=== PATIENT | female | born 1980 | race Caucasian/White ===

== ENCOUNTER 2016-09-09 19:24 | Emergency (ER) | payer MEDICAID ==
[~2016-09-09] VITALS: Ht 167.6 cm; Wt 100.0 kg
[~2016-09-09 19:24] MED LIST: ACYCLOVIR200 MG PO; AMARYL PO; AMBIEN 10MG10 MG PO; AMOXICILLIN875 MG PO; BACTRIM DS 8001 TAB PO; BIAXIN XL500 MG PO; CEFTIN 250250 MG/TAB PO; CEPHALEXIN500 M1 PO; COMBIVENT INH14.7 GM IH; DIFLUCAN 100MG100 MG PO; DIFLUCAN150 MG PO; FLAGYL500 MG PO; FLEXERIL10 MG PO; FORTAMET500 MG PO; GLIMEPIRIDE; GLIPIZIDE10 MG PO; GLUCOPHAGE1000 MG PO; GLUCOTROL10 M1 PO; GLUCOTROL10 MG PO; GYNE-LOTRIMIN 31 KIT VG; IMITREX25 MG PO; LANTIS; LANTUS100 U/ML; LANTUS100 U/ML SC; LANTUS100 U/ML SQ; LEVAQUIN 750MG750 MG PO; LEVEMIR100 U/ML SC; LEXAPRO 10MG10 MG PO; LISINOPRIL10 MG PO; LORTAB 5/500 501 TAB; LORTAB 5/500 501 TAB PO; LORTAB 7.5/5001 TAB PO; MIRENA52 MG IU; MOTRIN 200200 MG/TAB PO; MOTRIN 800800 MG/TAB PO; MYCOLOG-II 10001 CRE TP; NEURONTIN300 MG/CAP PO; NO HOME MEDICATIONS; NORCO 325 MG-51 TAB PO; NORCO 325 MG-7.1 TAB PO; NOVOLOG 100U100 U/M1 SC; NOVOLOG 100U100 U/ML SQ; NOVOLOG FLEX100 U/ML IV; NOVOLOG100 U/ML IV; NYSTATIN POWDER15 GM PO; OTC COLD MED; PERCOCET 325 MG1 TA2 PO; PERCOCET 325 MG1 TAB PO; PERCOCET 5/321 UDTAB PO; PHENERGAN 25 TA25 MG PO; PHENERGAN25 MG RC; PREDNISONE10 MG PO; PRENATAL1 TA1 PO; PRENATAL1 TA2 PO; PRILOSEC; ROBAXIN 50500 MG/TAB PO; SEPTRA DS 8001 TAB PO; SKELAXIN 800MG800 MG PO; TAMIFLU75 MG PO; TYLENOL 325MG325 MG PO; TYLENOL 500MG500 MG PO; ULTRAM 50MG TAB50 MG PO; VICODIN 5/5001 UDTAB PO; VIIBRYD20 MG PO; XANAX 0.5MG0.5 MG PO
[2016-09-09 19:25] VITALS: BP 150/82; TEMP 97.8
[2016-09-09] MEDS ORDERED: CYMBALTA 60MG60 MG PO (19:29)
[2016-09-09] MEDS ORDERED: KLONOPIN 0.5MG0.5 MG PO (19:29)
[2016-09-09 19:59] LABS: BASO % 0.4 % (0.0-2.0); EOS # 0.3 (0.0-0.7); EOS % 3.4 % (0-4.0); GRAN # 4.3 (1.4-6.5); HEMATOCRIT 42.9 % (37.0-47.0); HEMOGLOBIN 15.3 g/dl (12.5-16.0); LYMPH # 2.9 (1.2-3.4); LYMPH % 36.7 % (20.0-51.0); MEAN CELL VOLUME 84 fl (80.0-100.0); MEAN CORPUSCULAR HEMOGLOBIN 30 pg (27.0-31.0); MEAN CORPUSCULAR HGB CONC 36 g/dl (33.0-37.0); MEAN PLATELET VOLUME 10.7 fl (7.4-10.4); MONO # 0.4 (0.1-0.6); MONO % 5.4 % (1.7-9.3); PLATELET COUNT 201 K/mm3 (130-400); RED BLOOD COUNT 5.13 M/mm3 (4.10-5.30); REDCELL DISTRIBUTION WIDTH-CV 11.9 % (11.5-14.5)
[2016-09-09 20:07] LABS: ADJUSTED CALCIUM 9.8 mg/dL (8.4-10.2); ALBUMIN 4.4 gm/dL (3.5-5.0); BILIRUBIN,TOTAL 0.9 mg/dL (0.0-1.0); CALCIUM 10.1 mg/dL (8.4-10.2); CREATININE, serum 0.59 mg/dL (0.52-1.25); POTASSIUM 4.2 mmol/L (3.4-5.0); TOTAL PROTEIN 7.9 gm/dL (6.4-8.2)
[2016-09-09 20:10] LABS: PH 5 (5-8); URINE APPEARANCE Clear; URINE BACTERIA Rare /hpf; URINE BILIRUBIN Negative (NEGATIVE); URINE BLOOD Negative (NEGATIVE); URINE COLOR Yellow; URINE GLUCOSE 3+ (NEGATIVE); URINE KETONE Negative (NEGATIVE); URINE RBC 0-2 /hpf; URINE UROBILINOGEN Negative (NEGATIVE)
[2016-09-09] MEDS ORDERED: GLUCOPHAGE500 MG/TAB PO (21:03)
[2016-09-09 22:11] VITALS: PULSE 98
== END 2016-09-09 22:11 | disposition home or self-care (01) ==
LOC: COL.ER 19:24
PROVIDERS: Emergency Medicine
DX: E11.65 Type 2 diabetes mellitus with hyperglycemia (principal); T38.3X6A Underdosing of insulin and oral hypoglycemic [antidiabetic] drugs, initial encounter; Z91.138 Patient's unintentional underdosing of medication regimen for other reason
CPT/HCPCS: J1815

== ENCOUNTER 2016-11-12 01:08 | Emergency (ER) | payer MEDICAID ==
[~2016-11-12] VITALS: Ht 167.6 cm; Wt 100.0 kg
[~2016-11-12 01:08] MED LIST changes: +CYMBALTA 60MG60 MG PO; +GLUCOPHAGE500 MG/TAB PO; +KLONOPIN 0.5MG0.5 MG PO
[2016-11-12 01:10] VITALS: TEMP 97.7
[2016-11-12] MEDS ORDERED: CHANTIX 0.5MG0.5 MG PO (01:13)
[2016-11-12] MEDS ORDERED: GLUCOTROL 5M5 MG/TAB PO (01:14)
[2016-11-12] MEDS ORDERED: GLUCOPHAGE1000 MG PO (01:14)
[2016-11-12] MEDS ORDERED: AMOXICILLIN 50500 MG PO (02:08)
[2016-11-12 02:11] VITALS: BP 120/86; PULSE 80
== END 2016-11-12 02:12 | disposition home or self-care (01) ==
LOC: COL.ER 01:08
DX: J03.00 Acute streptococcal tonsillitis, unspecified (principal); F17.210 Nicotine dependence, cigarettes, uncomplicated; J45.909 Unspecified asthma, uncomplicated; E11.9 Type 2 diabetes mellitus without complications; F32.9 Major depressive disorder, single episode, unspecified; Z79.4 Long term (current) use of insulin; Z79.84 Long term (current) use of oral hypoglycemic drugs; Z98.890 Other specified postprocedural states

== ENCOUNTER 2016-11-30 23:14 | Emergency (ER) | payer MEDICAID ==
[~2016-11-30] VITALS: Ht 162.6 cm; Wt 102.3 kg
[~2016-11-30 23:14] MED LIST changes: +AMOXICILLIN 50500 MG PO; +CHANTIX 0.5MG0.5 MG PO; +GLUCOTROL 5M5 MG/TAB PO
[2016-11-30 23:17] VITALS: TEMP 98.7
[2016-11-30] MEDS ORDERED: CEPHALEXIN500 M1 PO (23:48)
[2016-12-01 00:23] VITALS: BP 118/64; PULSE 110
== END 2016-12-01 00:23 | disposition home or self-care (01) ==
LOC: COL.ER 23:14
DX: S70.361A Insect bite (nonvenomous), right thigh, initial encounter (principal); L03.115 Cellulitis of right lower limb; W57.XXXA Bitten or stung by nonvenomous insect and other nonvenomous arthropods, initial encounter; E11.9 Type 2 diabetes mellitus without complications; Z79.84 Long term (current) use of oral hypoglycemic drugs

== ENCOUNTER 2017-02-26 17:19 | Emergency (ER) | payer MEDICAID ==
[~2017-02-26] VITALS: Ht 167.6 cm; Wt 109.1 kg
[2017-02-26 17:24] VITALS: BP 122/62; TEMP 99
[2017-02-26 18:53] VITALS: PULSE 88
== END 2017-02-26 18:54 | disposition home or self-care (01) ==
LOC: COL.ER 17:19
DX: S93.602A Unspecified sprain of left foot, initial encounter (principal); E11.9 Type 2 diabetes mellitus without complications; F32.9 Major depressive disorder, single episode, unspecified; Z87.891 Personal history of nicotine dependence; Z79.84 Long term (current) use of oral hypoglycemic drugs; X50.9XXA Other and unspecified overexertion or strenuous movements or postures, initial encounter; Y92.481 Parking lot as the place of occurrence of the external cause

== ENCOUNTER 2017-03-02 21:54 | Emergency (ER) | payer MEDICAID ==
[~2017-03-02] VITALS: Ht 167.6 cm; Wt 109.1 kg
[2017-03-02 22:00] VITALS: TEMP 98.3
[2017-03-03] MEDS ORDERED: CRUTCHES MC (05:13)
[2017-03-03 05:46] VITALS: BP 139/73; PULSE 89
== END 2017-03-03 05:45 | disposition home or self-care (01) ==
LOC: COL.ER 21:54
DX: M79.672 Pain in left foot (principal); E11.9 Type 2 diabetes mellitus without complications; E78.5 Hyperlipidemia, unspecified; Z79.84 Long term (current) use of oral hypoglycemic drugs; Z87.891 Personal history of nicotine dependence

== ENCOUNTER 2017-09-27 20:15 | Emergency (ER) | payer MEDICAID ==
[~2017-09-27] VITALS: Ht 165.1 cm; Wt 100.0 kg
[~2017-09-27 20:15] MED LIST changes: +CRUTCHES MC
[2017-09-27 20:19] VITALS: TEMP 98.8
[2017-09-27] MEDS ORDERED: FORT1000TA PO (20:45)
[2017-09-27] MEDS ORDERED: NEURONTIN300 MG/CAP PO (20:45)
[2017-09-27] MEDS ORDERED: BYDUREON PEN2 MG SQ (20:46)
[2017-09-27 22:07] VITALS: BP 110/98; PULSE 100
== END 2017-09-27 22:08 | disposition home or self-care (01) ==
LOC: COL.ER 20:15
DX: S63.92XA Sprain of unspecified part of left wrist and hand, initial encounter (principal); E11.9 Type 2 diabetes mellitus without complications; J45.909 Unspecified asthma, uncomplicated; F32.9 Major depressive disorder, single episode, unspecified; G89.29 Other chronic pain; M54.9 Dorsalgia, unspecified; F17.210 Nicotine dependence, cigarettes, uncomplicated; Z79.84 Long term (current) use of oral hypoglycemic drugs; W01.0XXA Fall on same level from slipping, tripping and stumbling without subsequent striking against object, initial encounter; Y92.410 Unspecified street and highway as the place of occurrence of the external cause

== ENCOUNTER 2017-11-04 16:44 | Emergency (ER) | payer MEDICAID ==
[~2017-11-04] VITALS: Ht 167.6 cm; Wt 92.3 kg
[~2017-11-04 16:44] MED LIST changes: +BYDUREON PEN2 MG SQ; +FORT1000TA PO
[2017-11-04 16:51] VITALS: BP 117/90; TEMP 96.2
[2017-11-04] MEDS ORDERED: XALATAN EYE DROPS OD (17:33)
[2017-11-04] MEDS ORDERED: GLUCOTROL10 MG PO (17:33)
[2017-11-04 17:45] VITALS: PULSE 92
== END 2017-11-04 17:45 | disposition home or self-care (01) ==
LOC: COL.ER 16:44
DX: M79.672 Pain in left foot (principal); F32.9 Major depressive disorder, single episode, unspecified; E11.42 Type 2 diabetes mellitus with diabetic polyneuropathy; F17.210 Nicotine dependence, cigarettes, uncomplicated; Z79.84 Long term (current) use of oral hypoglycemic drugs; Y92.009 Unspecified place in unspecified non-institutional (private) residence as the place of occurrence of the external cause

== ENCOUNTER 2017-11-26 04:12 | Emergency (ER) | payer MEDICAID ==
[~2017-11-26] VITALS: Ht 167.6 cm; Wt 90.9 kg
[~2017-11-26 04:12] MED LIST changes: +XALATAN EYE DROPS OU
[2017-11-26 04:15] VITALS: TEMP 98
[2017-11-26 04:39] LABS: BASO % 0.4 % (0.0-2.0); EOS # 0.1 (0.0-0.7); EOS % 2.1 % (0-4.0); GRAN # 3.1 (1.4-6.5); LYMPH # 1.9 (1.2-3.4); LYMPH % 32.9 % (20.0-51.0); MEAN CELL VOLUME 85 fl (80.0-100.0); MEAN CORPUSCULAR HEMOGLOBIN 28 pg (27.0-31.0); MEAN CORPUSCULAR HGB CONC 34 g/dl (33.0-37.0); MEAN PLATELET VOLUME 9.5 fl (7.4-10.4); MONO # 0.5 (0.1-0.6); MONO % 8.9 % (1.7-9.3); PLATELET COUNT 160 K/mm3 (130-400); RED BLOOD COUNT 4.23 M/mm3 (4.10-5.30); REDCELL DISTRIBUTION WIDTH-CV 12.2 % (11.5-14.5)
[2017-11-26 04:41] LABS: HEMATOCRIT 35.8 % (37.0-47.0)
[2017-11-26 04:46] LABS: ALBUMIN 3.1 gm/dL (3.5-5.0); BILIRUBIN,TOTAL 0.7 mg/dL (0.0-1.0); CALCIUM 7.8 mg/dL (8.4-10.2); CREATININE, serum 0.86 mg/dL (0.52-1.25); POTASSIUM 3.1 mmol/L (3.4-5.0); TOTAL PROTEIN 6.8 gm/dL (6.4-8.2)
[2017-11-26 04:50] LABS: C-REACTIVE PROTEIN 4.3 mg/dL (0.0-0.9)
[2017-11-26] MEDS ORDERED: GLUCOPHAGE XR500 M1 PO (05:21)
[2017-11-26] MEDS ORDERED: K-DUR20 MEQ PO (05:22)
[2017-11-26] MEDS ORDERED: OMNICEF 300MG300 MG PO (05:23)
[2017-11-26] MEDS ORDERED: ZOFRAN ODT4 MG PO (06:09)
[2017-11-26 06:40] VITALS: BP 115/85; PULSE 97
[2017-11-27] MEDS ORDERED: PHENERGAN25 MG RC (20:13)
== END 2017-11-26 06:53 | disposition home or self-care (01) ==
LOC: COL.ER 04:12
PROVIDERS: Family Medicine
DX: R11.2 Nausea with vomiting, unspecified (principal); R51 Headache; E11.9 Type 2 diabetes mellitus without complications; F32.9 Major depressive disorder, single episode, unspecified; Z87.891 Personal history of nicotine dependence; Z79.84 Long term (current) use of oral hypoglycemic drugs
CPT/HCPCS: J2543; J7030; J7050

== ENCOUNTER 2017-11-27 16:26 | Inpatient (IN) | payer MEDICAID ==
[~2017-11-27] VITALS: Ht 167.6 cm; Wt 92.7 kg
[~2017-11-27 16:26] MED LIST changes: +GLUCOPHAGE XR500 M1 PO; +K-DUR20 MEQ PO; +OMNICEF 300MG300 MG PO; +ZOFRAN ODT4 MG PO
[2017-11-27 16:59] LABS: BASO % 0.4 % (0.0-2.0); EOS # 0.2 (0.0-0.7); EOS % 2.2 % (0-4.0); GRAN # 3.7 (1.4-6.5); LYMPH # 2.4 (1.2-3.4); MEAN CELL VOLUME 84 fl (80.0-100.0); MEAN CORPUSCULAR HEMOGLOBIN 29 pg (27.0-31.0); MEAN CORPUSCULAR HGB CONC 35 g/dl (33.0-37.0); MEAN PLATELET VOLUME 9.9 fl (7.4-10.4); MONO # 0.6 (0.1-0.6); MONO % 8.7 % (1.7-9.3); PLATELET COUNT 165 K/mm3 (130-400); RED BLOOD COUNT 4.17 M/mm3 (4.10-5.30); REDCELL DISTRIBUTION WIDTH-CV 11.9 % (11.5-14.5)
[2017-11-27 17:00] LABS: HEMATOCRIT 34.8 % (37.0-47.0)
[2017-11-27 17:04] LABS: INR 1.2 (0.8-3.0); PROTHROMBIN TIME 13.8 SECONDS (9.7-12.8)
[2017-11-27 17:09] LABS: ALANINE AMINOTRANSFERASE 34 U/L (9-52); ALBUMIN 3.3 gm/dL (3.5-5.0); ALKALINE PHOSPHATASE 76 U/L (50-136); ANION GAP 15 mmol/L (7-16); AST,SGOT 39 U/L (15-37); BILIRUBIN,TOTAL 0.9 mg/dL (0.0-1.0); BLOOD UREA NITROGEN 10 mg/dL (7-17); CALCIUM 7.3 mg/dL (8.4-10.2); CARBON DIOXIDE 29 mmol/L (22-30); CHLORIDE 95 mmol/L (98-107); CREATININE, serum 0.64 mg/dL (0.52-1.25); GLUCOSE 174 mg/dL (74-106); LIPASE 130 U/L (23-300); SODIUM 138 mmol/L (137-145); TOTAL PROTEIN 7.1 gm/dL (6.4-8.2)
[2017-11-27 17:13] LABS: POTASSIUM 2.8 mmol/L (3.4-5.0)
[2017-11-27 17:29] LABS: TROPONIN-I < 0.012 ng/mL (0.000-0.034)
[2017-11-27 19:09] LABS: COLLECTION METHOD CLEAN CATCH
[2017-11-27 19:26] LABS: MUCOUS Present /lpf; PH 9 (5-8); SQUAMOUS EPITHELIAL 20-50 /hpf; URINE APPEARANCE Hazy; URINE BACTERIA Rare /hpf; URINE BILIRUBIN Negative (NEGATIVE); URINE BLOOD 2+ (NEGATIVE); URINE COLOR Yellow; URINE GLUCOSE Negative (NEGATIVE); URINE KETONE Trace (NEGATIVE); URINE LEUKOCYTE ESTERASE 1+ (NEGATIVE); URINE NITRATE Negative (NEGATIVE); URINE PROTEIN(semi-quant) Negative (NEGATIVE); URINE UROBILINOGEN Negative (NEGATIVE)
[2017-11-27] MEDS ORDERED: PHENERGAN25 MG RC (20:13)
[2017-11-27 20:50] LABS: CALCIUM 7.1 mg/dL (8.4-10.2); CREATININE, serum 0.59 mg/dL (0.52-1.25)
[2017-11-27 20:51] LABS: POTASSIUM 2.8 mmol/L (3.4-5.0)
[2017-11-27 21:23] LABS: ARTERIAL BLD GAS O2 SATURATION 97.8 % (92-100); ARTERIAL BLD GAS TCO2 CT 32.1; ARTERIAL BLOOD GAS HCO3 31.1 meq/L (22-26); ARTERIAL BLOOD GAS PCO2 30.5 mmHg (35-45); ARTERIAL BLOOD GAS PO2 107.2 mmHg (80-100)
[2017-11-27 21:27] LABS: ARTERIAL BLOOD GAS pH 7.63 (7.35-7.45)
[2017-11-27 21:46] LABS: TRICYCLIC ANTIDEPRESS URINE NEGATIVE
[2017-11-27 23:07] LABS: COLLECTION METHOD CLEAN CATCH
[2017-11-27 23:13] LABS: PH 9 (5-8); SQUAMOUS EPITHELIAL 0-2 /hpf; URINE APPEARANCE Clear; URINE BACTERIA Rare /hpf; URINE BILIRUBIN Negative (NEGATIVE); URINE BLOOD 1+ (NEGATIVE); URINE COLOR Yellow; URINE GLUCOSE Negative (NEGATIVE); URINE KETONE Trace (NEGATIVE); URINE LEUKOCYTE ESTERASE Trace (NEGATIVE); URINE NITRATE Negative (NEGATIVE); URINE PROTEIN(semi-quant) Negative (NEGATIVE); URINE UROBILINOGEN Negative (NEGATIVE)
[2017-11-28 01:35] VITALS: BP 153/91; PULSE 79; TEMP 98.4
[2017-11-28 03:53] VITALS: BP 151/103; PULSE 89; TEMP 98.5
[2017-11-28 06:37] LABS: BASO % 0.3 % (0.0-2.0); EOS # 0.2 (0.0-0.7); EOS % 1.8 % (0-4.0); GRAN # 5.5 (1.4-6.5); GRAN % 60.2 % (42.2-75.2); HEMATOCRIT 37.8 % (37.0-47.0); LYMPH # 2.8 (1.2-3.4); LYMPH % 30.7 % (20.0-51.0); MEAN CELL VOLUME 84 fl (80.0-100.0); MEAN CORPUSCULAR HEMOGLOBIN 29 pg (27.0-31.0); MEAN CORPUSCULAR HGB CONC 34 g/dl (33.0-37.0); MEAN PLATELET VOLUME 9.9 fl (7.4-10.4); MONO # 0.6 (0.1-0.6); MONO % 6.5 % (1.7-9.3); PLATELET COUNT 191 K/mm3 (130-400); RED BLOOD COUNT 4.49 M/mm3 (4.10-5.30); REDCELL DISTRIBUTION WIDTH-CV 12.1 % (11.5-14.5)
[2017-11-28 06:48] LABS: ALBUMIN 3.6 gm/dL (3.5-5.0); BILIRUBIN,TOTAL 0.8 mg/dL (0.0-1.0); CALCIUM 7.5 mg/dL (8.4-10.2); CREATININE, serum 0.73 mg/dL (0.52-1.25)
[2017-11-28 06:51] LABS: POTASSIUM 2.8 mmol/L (3.4-5.0)
[2017-11-28 07:28] VITALS: BP 125/78; PULSE 84; TEMP 98.3
[2017-11-28 11:27] VITALS: BP 138/85; PULSE 79; TEMP 98.5
[2017-11-28 16:22] VITALS: BP 143/89; PULSE 81; TEMP 97.8
[2017-11-28 23:40] VITALS: BP 151/93; PULSE 92; TEMP 97.9
[2017-11-29] VITALS (370 sets, daily range): BP systolic 86–154; BP diastolic 58–90; PULSE 93–105; TEMP 97.7–99.5; O2SAT 98–100
[2017-11-29 05:55] LABS: ARTERIAL BLD GAS O2 SATURATION 96.4 % (92-100); ARTERIAL BLD GAS TCO2 CT 13.5; ARTERIAL BLOOD GAS HCO3 12.6 meq/L (22-26); ARTERIAL BLOOD GAS PCO2 31.9 mmHg (35-45); ARTERIAL BLOOD GAS PO2 104.9 mmHg (80-100); ARTERIAL BLOOD GAS pH 7.21 (7.35-7.45)
[2017-11-29 06:43] LABS: ALBUMIN 3.7 gm/dL (3.5-5.0); BILIRUBIN,TOTAL 0.7 mg/dL (0.0-1.0); CALCIUM 6.8 mg/dL (8.4-10.2); CREATININE, serum 0.75 mg/dL (0.52-1.25); MAGNESIUM 1.2 mg/dL (1.6-2.3); POTASSIUM 4.6 mmol/L (3.4-5.0); TOTAL PROTEIN 7.9 gm/dL (6.4-8.2)
[2017-11-29 06:47] LABS: HEMATOCRIT 39.7 % (37.0-47.0); HEMOGLOBIN 13.1 g/dl (12.5-16.0); MEAN CELL VOLUME 87 fl (80.0-100.0); MEAN CORPUSCULAR HEMOGLOBIN 29 pg (27.0-31.0); MEAN CORPUSCULAR HGB CONC 33 g/dl (33.0-37.0); MEAN PLATELET VOLUME 10.3 fl (7.4-10.4); PLATELET COUNT 221 K/mm3 (130-400); RED BLOOD COUNT 4.58 M/mm3 (4.10-5.30); REDCELL DISTRIBUTION WIDTH-CV 12.4 % (11.5-14.5)
[2017-11-29 06:59] LABS: PROLACTIN 62.7 ng/mL (3.0-18.6)
[2017-11-29 07:46] LABS: BAND 14 % (0-10); LYMPHOCYTE 16 % (20.0-51.0); METAMYELOCYTE 1 % (0-0); NEUTROPHILS 68 % (42.0-75.2); PLATELET ESTIMATE NORMAL (NORMAL)
[2017-11-29 08:34] LABS: ARTERIAL BLD GAS O2 SATURATION 98.7 % (92-100); ARTERIAL BLD GAS TCO2 CT 21.3; ARTERIAL BLOOD GAS BASE EXCESS -2.6 (-2-2); ARTERIAL BLOOD GAS HCO3 20.4 meq/L (22-26); ARTERIAL BLOOD GAS pH 7.45 (7.35-7.45)
[2017-11-29 08:35] LABS: ARTERIAL BLOOD GAS PO2 194.8 mmHg (80-100)
[2017-11-29 10:22] LABS: GLUCOSE,CSF 175 mg/dL (40-70); TOTAL PROTEIN,CSF 96 mg/dL (15-45)
[2017-11-29 10:53] LABS: CSF APPEARANCE CLEAR; CSF COLOR COLORLESS; CSF MONONUCLEAR 59 % (70-100); CSF POLYMORPHONUCLEAR 41 % (0-6); CSF RBC 374 /mm3 (0-0)
[2017-11-29 12:14] LABS: TRICYCLIC ANTIDEPRESS URINE NEGATIVE
[2017-11-30] VITALS (8 sets, daily range): BP systolic 83–124; BP diastolic 52–81; PULSE 56–93; TEMP 97.2–98
[2017-11-30 05:40] LABS: ARTERIAL BLD GAS O2 SATURATION 98.2 % (92-100); ARTERIAL BLD GAS TCO2 CT 18.4; ARTERIAL BLOOD GAS BASE EXCESS -4.2 (-2-2); ARTERIAL BLOOD GAS HCO3 17.7 meq/L (22-26); ARTERIAL BLOOD GAS PCO2 23.3 mmHg (35-45); ARTERIAL BLOOD GAS PO2 152.9 mmHg (80-100)
[2017-11-30 05:53] LABS: ALBUMIN 2.4 gm/dL (3.5-5.0); BILIRUBIN,TOTAL 0.3 mg/dL (0.0-1.0); CALCIUM 6.3 mg/dL (8.4-10.2); CREATININE, serum 0.7 mg/dL (0.52-1.25); MAGNESIUM 1.8 mg/dL (1.6-2.3); PHOSPHOROUS 2.4 mg/dL (2.5-4.5); POTASSIUM 4.1 mmol/L (3.4-5.0); TOTAL PROTEIN 5.3 gm/dL (6.4-8.2)
[2017-11-30 06:01] LABS: TROPONIN-I 0.018 ng/mL (0.000-0.034)
[2017-11-30 06:27] LABS: BASO % 0.2 % (0.0-2.0); EOS # 0.1 (0.0-0.7); EOS % 1.2 % (0-4.0); GRAN # 4.6 (1.4-6.5); GRAN % 55.5 % (42.2-75.2); HEMATOCRIT 26.6 % (37.0-47.0); LYMPH # 2.9 (1.2-3.4); LYMPH % 34.5 % (20.0-51.0); MEAN CELL VOLUME 85 fl (80.0-100.0); MEAN CORPUSCULAR HEMOGLOBIN 28 pg (27.0-31.0); MEAN CORPUSCULAR HGB CONC 34 g/dl (33.0-37.0); MEAN PLATELET VOLUME 10.6 fl (7.4-10.4); MONO # 0.7 (0.1-0.6); MONO % 8.1 % (1.7-9.3); PLATELET COUNT 172 K/mm3 (130-400); RED BLOOD COUNT 3.13 M/mm3 (4.10-5.30); REDCELL DISTRIBUTION WIDTH-CV 12.9 % (11.5-14.5)
[2017-11-30 06:28] LABS: HEMOGLOBIN 8.9 g/dl (12.5-16.0)
[2017-11-30 10:13] LABS: HEMATOCRIT 30.2 % (37.0-47.0)
[2017-12-01] VITALS (7 sets, daily range): BP systolic 101–133; BP diastolic 61–86; PULSE 81–101; TEMP 97–99.4
[2017-12-01 05:17] LABS: BASO % 0.4 % (0.0-2.0); EOS # 0.2 (0.0-0.7); EOS % 1.7 % (0-4.0); GRAN # 8.2 (1.4-6.5); GRAN % 75.1 % (42.2-75.2); HEMATOCRIT 29.8 % (37.0-47.0); LYMPH # 1.9 (1.2-3.4); LYMPH % 17.2 % (20.0-51.0); MEAN CELL VOLUME 86 fl (80.0-100.0); MEAN CORPUSCULAR HEMOGLOBIN 29 pg (27.0-31.0); MEAN CORPUSCULAR HGB CONC 34 g/dl (33.0-37.0); MEAN PLATELET VOLUME 10.2 fl (7.4-10.4); MONO # 0.6 (0.1-0.6); MONO % 5.2 % (1.7-9.3); PLATELET COUNT 197 K/mm3 (130-400); RED BLOOD COUNT 3.47 M/mm3 (4.10-5.30); REDCELL DISTRIBUTION WIDTH-CV 12.7 % (11.5-14.5)
[2017-12-01 05:27] LABS: ALBUMIN 2.7 gm/dL (3.5-5.0); BILIRUBIN,TOTAL 0.6 mg/dL (0.0-1.0); CALCIUM 7.3 mg/dL (8.4-10.2); CREATININE, serum 0.55 mg/dL (0.52-1.25); MAGNESIUM 1.1 mg/dL (1.6-2.3); POTASSIUM 3.8 mmol/L (3.4-5.0)
[2017-12-02 03:27] VITALS: BP 122/77; PULSE 96; TEMP 98.8
[2017-12-02 06:42] LABS: BASO % 0.5 % (0.0-2.0); EOS # 0.2 (0.0-0.7); EOS % 2.4 % (0-4.0); GRAN % 62.6 % (42.2-75.2); HEMOGLOBIN 10.6 g/dl (12.5-16.0); LYMPH # 2.2 (1.2-3.4); LYMPH % 27.1 % (20.0-51.0); MEAN CELL VOLUME 86 fl (80.0-100.0); MEAN CORPUSCULAR HEMOGLOBIN 29 pg (27.0-31.0); MEAN CORPUSCULAR HGB CONC 34 g/dl (33.0-37.0); MEAN PLATELET VOLUME 10.7 fl (7.4-10.4); MONO # 0.6 (0.1-0.6); PLATELET COUNT 261 K/mm3 (130-400); RED BLOOD COUNT 3.69 M/mm3 (4.10-5.30); REDCELL DISTRIBUTION WIDTH-CV 12.8 % (11.5-14.5)
[2017-12-02 06:51] LABS: HEMATOCRIT 31.6 % (37.0-47.0)
[2017-12-02 07:00] LABS: ALBUMIN 2.8 gm/dL (3.5-5.0); BILIRUBIN,TOTAL 0.3 mg/dL (0.0-1.0); CREATININE, serum 0.73 mg/dL (0.52-1.25); MAGNESIUM 1.5 mg/dL (1.6-2.3); POTASSIUM 3.7 mmol/L (3.4-5.0); TOTAL PROTEIN 6.2 gm/dL (6.4-8.2)
[2017-12-02 07:54] VITALS: BP 114/78; PULSE 96; TEMP 98.5
[2017-12-02 11:44] VITALS: BP 105/75; PULSE 109; TEMP 98.5
[2017-12-02 16:10] VITALS: BP 133/88; PULSE 100; TEMP 98.5
[2017-12-02 18:49] VITALS: BP 98/66; PULSE 97
[2017-12-02 23:48] VITALS: BP 132/86; PULSE 87
[2017-12-03 03:34] VITALS: BP 125/90; PULSE 83; TEMP 97.8
[2017-12-03 08:31] VITALS: BP 120/89; PULSE 102; TEMP 98.1
[2017-12-03] MEDS ORDERED: PHENYTEK200 MG PO (09:53)
[2017-12-03 10:56] LABS: BASO # 0.1 (0.0-0.2); BASO % 0.5 % (0.0-2.0); EOS # 0.2 (0.0-0.7); EOS % 2.3 % (0-4.0); GRAN # 7.1 (1.4-6.5); GRAN % 69.8 % (42.2-75.2); HEMOGLOBIN 11.9 g/dl (12.5-16.0); LYMPH # 2.2 (1.2-3.4); LYMPH % 21.4 % (20.0-51.0); MEAN CELL VOLUME 88 fl (80.0-100.0); MEAN CORPUSCULAR HEMOGLOBIN 29 pg (27.0-31.0); MEAN CORPUSCULAR HGB CONC 33 g/dl (33.0-37.0); MEAN PLATELET VOLUME 10.1 fl (7.4-10.4); MONO # 0.6 (0.1-0.6); MONO % 5.6 % (1.7-9.3); PLATELET COUNT 349 K/mm3 (130-400); RED BLOOD COUNT 4.08 M/mm3 (4.10-5.30)
[2017-12-03 10:58] LABS: HEMATOCRIT 35.8 % (37.0-47.0)
[2017-12-03 10:59] VITALS: BP 114/82; PULSE 103; TEMP 98.1
[2017-12-03 11:04] LABS: CALCIUM 8.7 mg/dL (8.4-10.2); CREATININE, serum 1.08 mg/dL (0.52-1.25); MAGNESIUM 1.7 mg/dL (1.6-2.3); POTASSIUM 4.2 mmol/L (3.4-5.0)
== END 2017-12-03 15:41 | disposition home health service (06) | DRG 917 ==
LOC: COL.ER 16:26 → MEDICAL 21:28 → ICU 11-28 09:05 → MEDICAL 11-28 09:06 → ICU 11-29 07:10 → MEDICAL 12-01 14:54
PROVIDERS: Emergency Medicine; Nurse Practitioner Family; Physician Assistant; Psychiatry & Neurology Neurology
PROC: 5A1945Z Respiratory Ventilation, 24-96 Consecutive Hours (ICD-10-PCS; principal; 2017-11-29)
PROC: 0BH17EZ Insertion of Endotracheal Airway into Trachea, Via Natural or Artificial Opening (ICD-10-PCS; 2017-11-29)
PROC: 009U3ZX Drainage of Spinal Canal, Percutaneous Approach, Diagnostic (ICD-10-PCS; 2017-11-29)
DX: T42.4X1A Poisoning by benzodiazepines, accidental (unintentional), initial encounter (principal); J96.01 Acute respiratory failure with hypoxia; E87.3 Alkalosis; F33.8 Other recurrent depressive disorders; E87.2 Acidosis; E87.1 Hypo-osmolality and hyponatremia; N39.0 Urinary tract infection, site not specified; T40.7X1A Poisoning by cannabis (derivatives), accidental (unintentional), initial encounter; R56.9 Unspecified convulsions; E11.65 Type 2 diabetes mellitus with hyperglycemia; E83.42 Hypomagnesemia; F41.0 Panic disorder [episodic paroxysmal anxiety]; F60.3 Borderline personality disorder; E87.6 Hypokalemia; I10 Essential (primary) hypertension; F17.210 Nicotine dependence, cigarettes, uncomplicated
CPT/HCPCS: 99222-AI; 99233-AI; 99239; A4314; C1751; G0378; J0330; J0696; J1170; J1644; J1800; J1815; J2250; J2405; J2543; J2550; J2704; J2765; J3010; J3030; J3370; J3411; J3475; J3480; J7030; J7040; J7050; J7120; Q2009; Q9967

== ENCOUNTER 2017-12-13 15:51 | Outpatient (CLI) | payer MEDICAID ==
[~2017-12-13] VITALS: Ht 167.6 cm; Wt 86.8 kg
[~2017-12-13 15:51] MED LIST changes: +PHENYTEK200 MG PO
[2017-12-13 16:10] VITALS: BP 119/82; PULSE 66; TEMP 98
== END 2017-12-13 18:00 | disposition home or self-care (01) ==
LOC: EUO 15:51
DX: E86.0 Dehydration (principal)
CPT/HCPCS: J7030

== ENCOUNTER 2018-06-16 08:07 | Inpatient (IN) | payer MEDICAID ==
[~2018-06-16] VITALS: Ht 170.2 cm; Wt 93.0 kg
[2018-06-16] VITALS (269 sets, daily range): BP systolic 94–129; BP diastolic 62–119; PULSE 74–127; TEMP 98–99.5; O2SAT 86–100
[2018-06-16 08:24] LABS: BASO % 0.4 % (0.0-2.0); EOS # 0.1 (0.0-0.7); EOS % 0.6 % (0-4.0); GRAN # 6.5 (1.4-6.5); GRAN % 77.5 % (42.2-75.2); HEMOGLOBIN 11.9 g/dl (12.5-16.0); LYMPH # 1.4 (1.2-3.4); LYMPH % 16.6 % (20.0-51.0); MEAN CELL VOLUME 90 fl (80.0-100.0); MEAN CORPUSCULAR HEMOGLOBIN 30 pg (27.0-31.0); MEAN CORPUSCULAR HGB CONC 34 g/dl (33.0-37.0); MEAN PLATELET VOLUME 10.1 fl (7.4-10.4); MONO # 0.4 (0.1-0.6); MONO % 4.5 % (1.7-9.3); PLATELET COUNT 192 K/mm3 (130-400); RED BLOOD COUNT 3.94 M/mm3 (4.10-5.30); REDCELL DISTRIBUTION WIDTH-CV 13.3 % (11.5-14.5)
[2018-06-16 08:38] LABS: ALANINE AMINOTRANSFERASE 20 U/L (9-52); ALBUMIN 3.7 gm/dL (3.5-5.0); ALKALINE PHOSPHATASE 77 U/L (50-136); ANION GAP 5 mmol/L (7-16); AST,SGOT 16 U/L (15-37); BLOOD UREA NITROGEN 31 mg/dL (7-17); CALCIUM 8.8 mg/dL (8.4-10.2); CARBON DIOXIDE 26 mmol/L (22-30); CHLORIDE 100 mmol/L (98-107); CREATININE, serum 1.49 mg/dL (0.52-1.25); GLUCOSE 297 mg/dL (74-106); SODIUM 132 mmol/L (137-145); TOTAL PROTEIN 6.7 gm/dL (6.4-8.2)
[2018-06-16 08:48] LABS: ACETAMINOPHEN < 10 ug/mL (10-30); SALICYLATE < 1.0 mg/dL
[2018-06-16 08:49] LABS: ALCOHOL(ethanol),MEDICAL < 10 mg/dL; POTASSIUM 6.5 mmol/L (3.4-5.0)
[2018-06-16 08:57] LABS: HEMATOCRIT 35.4 % (37.0-47.0)
[2018-06-16 09:05] LABS: TRICYCLIC ANTIDEPRESS URINE POSITIVE
[2018-06-16 10:17] LABS: COLLECTION METHOD CLEAN CATCH
[2018-06-16 10:37] LABS: MUCOUS Present /lpf; PH 5 (5-8); SQUAMOUS EPITHELIAL 0-2 /hpf; URINE APPEARANCE Cloudy; URINE BACTERIA Rare /hpf; URINE BILIRUBIN Positive (NEGATIVE); URINE BLOOD Negative (NEGATIVE); URINE COLOR Amber; URINE GLUCOSE Negative (NEGATIVE); URINE KETONE Negative (NEGATIVE); URINE LEUKOCYTE ESTERASE 3+ (NEGATIVE); URINE NITRATE Negative (NEGATIVE); URINE PROTEIN(semi-quant) 2+ (NEGATIVE); URINE RBC None Seen /hpf
[2018-06-16 11:33] LABS: CALCIUM 7.5 mg/dL (8.4-10.2); CREATININE, serum 1.27 mg/dL (0.52-1.25); POTASSIUM 5.1 mmol/L (3.4-5.0)
--- NOTE | 2018-06-16 15:00 | NUR ---
Mother and brother at bedside, patient settling down with Propofol titration.
[2018-06-16 15:46] LABS: ARTERIAL BLD GAS TCO2 CT 25.2; ARTERIAL BLOOD GAS BASE EXCESS 2.2 (-2-2); ARTERIAL BLOOD GAS HCO3 24.3 meq/L (22-26); ARTERIAL BLOOD GAS PCO2 29.7 mmHg (35-45); ARTERIAL BLOOD GAS pH 7.53 (7.35-7.45)
[2018-06-16 15:47] LABS: ARTERIAL BLOOD GAS PO2 403.9 mmHg (80-100)
[2018-06-16 18:40] LABS: CREATININE, serum 1.33 mg/dL (0.52-1.25)
--- NOTE | 2018-06-16 19:36 | NUR ---
bedside report given to Charissa MEEK. Medication drips verified. RT also in room for report
--- NOTE | 2018-06-16 19:40 | NUR ---
Patient becomes very restless and agitated with cares. Observed thrashing around in bed. Will comply with verbal orders to relax or stop fighting the vent for a short time, but then continues thrashing around. Sedation increased at this time to assist with tolerating ventilator and cares.
--- NOTE | 2018-06-16 20:16 | NUR ---
Updated patient's mother Karis via telephone. All questions and concerns addressed at this time.
--- NOTE | 2018-06-16 22:05 | NUR ---
Patient sedated and restrained on the ventilator. Allowed to have visitors while on the ventilator.
--- NOTE | 2018-06-16 23:51 | NUR ---
Patient has been responsive to verbal stimuli. Will squeeze hands on command and intermittently open eyes on command. Received verbal order to change neuro checks from every hour to every [address] Mcintyre.
[2018-06-17] VITALS: BP 122/77; PULSE 72; TEMP 101.2
--- NOTE | 2018-06-17 02:05 | NUR ---
Bedbath provided; patient became very combative. Was sitting up and attempting to reach for the ET tube. Sedation increased at this time.
[2018-06-17 02:30] VITALS: TEMP 100
--- NOTE | 2018-06-17 02:45 | NUR ---
Called [facility] to inquire about shutting off insulin drip and starting sliding scale. Drip currently on hold for BG of 119. Glucose readings have been ranging from 120-180's with the majority of the night at one unit. Instructed per [facility] nurse, Chikis to continue with the drip off for two hours and evaluate if glucoses are still under control off of insulin. Will continue to monitor
[2018-06-17 03:01] VITALS: BP 117/71; PULSE 71
--- NOTE | 2018-06-17 04:25 | NUR ---
Spoke with [facility] NurseChikis regarding patient insulin drip. She will talk to Dr. Mcintyre about stopping drip and starting sliding scale insulin. Awaiting further orders. NG tube residual also noted to be a mindy orange. On prvious assessment residual was green. Stated that suction was set to low intermittent suction. Instructed to turn down the suction slightly and flush the tubing. Continue to monitor residual.
[2018-06-17 05:22] LABS: ARTERIAL BLD GAS O2 SATURATION 98.4 % (92-100); ARTERIAL BLD GAS TCO2 CT 22.8; ARTERIAL BLOOD GAS BASE EXCESS -0.3 (-2-2); ARTERIAL BLOOD GAS HCO3 21.9 meq/L (22-26); ARTERIAL BLOOD GAS PCO2 28.1 mmHg (35-45); ARTERIAL BLOOD GAS PO2 175.8 mmHg (80-100); ARTERIAL BLOOD GAS pH 7.51 (7.35-7.45)
--- NOTE | 2018-06-17 05:25 | NUR ---
Received phone call from Dr. Mcintyre. Instructed to reduce RR to 14 due to latest ABG being alkalotic. RT notified.
--- NOTE | 2018-06-17 05:39 | NUR ---
SETTINGS CHANGED AT THIS TIME PER [facility] DR. BAER. RR DECREASED TO 14, FIO2 DECREASED TO 35%.
[2018-06-17 06:35] LABS: BASO % 0.3 % (0.0-2.0); EOS % 0.3 % (0-4.0); GRAN # 7.8 (1.4-6.5); GRAN % 70.8 % (42.2-75.2); LYMPH # 2.5 (1.2-3.4); LYMPH % 22.3 % (20.0-51.0); MEAN CELL VOLUME 89 fl (80.0-100.0); MEAN CORPUSCULAR HEMOGLOBIN 30 pg (27.0-31.0); MEAN CORPUSCULAR HGB CONC 33 g/dl (33.0-37.0); MEAN PLATELET VOLUME 10.3 fl (7.4-10.4); MONO # 0.7 (0.1-0.6); PLATELET COUNT 173 K/mm3 (130-400); RED BLOOD COUNT 3.39 M/mm3 (4.10-5.30); REDCELL DISTRIBUTION WIDTH-CV 13.6 % (11.5-14.5)
[2018-06-17 06:38] LABS: ALBUMIN 2.8 gm/dL (3.5-5.0); BILIRUBIN,TOTAL 0.5 mg/dL (0.0-1.0); CALCIUM 7.9 mg/dL (8.4-10.2); CREATININE, serum 1.1 mg/dL (0.52-1.25); MAGNESIUM 1.6 mg/dL (1.6-2.3); PHOSPHOROUS 2.9 mg/dL (2.5-4.5); POTASSIUM 3.7 mmol/L (3.4-5.0); TOTAL PROTEIN 5.5 gm/dL (6.4-8.2)
[2018-06-17 06:40] LABS: HEMATOCRIT 30.3 % (37.0-47.0); INR 1.2 (0.8-3.0); PROTHROMBIN TIME 13.6 SECONDS (9.7-12.8)
--- NOTE | 2018-06-17 07:00 | NUR ---
Bedside report recieved from Martha MEEK. Pt aggitated during turns and oral care. Mother updated on telephone - plan to come see pt later this afternoon.
--- NOTE | 2018-06-17 07:10 | NUR ---
Bedside report given to GAVIOTA Faye. Patient care transfered.
[2018-06-17 12:00] VITALS: BP 94/63; PULSE 63; TEMP 101
[2018-06-17 13:41] LABS: COLLECTION METHOD CLEAN CATCH
[2018-06-17 14:27] LABS: MUCOUS Present /lpf; PH 5 (5-8); URINE APPEARANCE Cloudy; URINE BACTERIA Rare /hpf; URINE BILIRUBIN Negative (NEGATIVE); URINE BLOOD 2+ (NEGATIVE); URINE COLOR Yellow; URINE GLUCOSE Negative (NEGATIVE); URINE KETONE Trace (NEGATIVE); URINE LEUKOCYTE ESTERASE 3+ (NEGATIVE); URINE NITRATE Negative (NEGATIVE); URINE PROTEIN(semi-quant) 1+ (NEGATIVE); URINE RBC >50 /hpf; URINE UROBILINOGEN Negative (NEGATIVE)
[2018-06-17 16:00] VITALS: BP 123/80; PULSE 62; TEMP 99.2
[2018-06-17 20:00] VITALS: BP 141/87; PULSE 64; TEMP 98.5
--- NOTE | 2018-06-17 20:00 | NUR ---
Shift assessment complete at this time. Unable to review plan of care with patient or family. Vitals stable. CPOT 0. Pt awakens to voice and follows commands on ventilator. Will continue to monitor.
--- NOTE | 2018-06-17 22:00 | NUR ---
Unable to perform behavioral health assessment. Pt intubated and sedated on ventilator.
[2018-06-18] VITALS (34 sets, daily range): BP systolic 81–115; BP diastolic 55–72; PULSE 59–72; TEMP 97.5–98.9
--- NOTE | 2018-06-18 | NUR ---
Shift reassessment complete at this time. No changes from previous assessment. CPOT 0. Pt resting comfortably in bed. Follows direction and responds appropriately to verbal stimuli. Vitals stable at this time. Will continue to monitor.
--- NOTE | 2018-06-18 04:00 | NUR ---
Shift reassessment complete at this time. No changes from previous assessments. Vitals stable. Pt follows direction and shows no signs of pain. Will continue to monitor.
--- NOTE | 2018-06-18 05:00 | NUR ---
Pt currently calm, responding to voice, and following commands on current sedation levels. Sedation will be stopped completely prior to smart care breathing trial.
[2018-06-18 05:18] LABS: BASO % 0.5 % (0.0-2.0); EOS # 0.2 (0.0-0.7); EOS % 2.9 % (0-4.0); GRAN # 4.5 (1.4-6.5); GRAN % 60.8 % (42.2-75.2); LYMPH % 27.1 % (20.0-51.0); MEAN CELL VOLUME 92 fl (80.0-100.0); MEAN CORPUSCULAR HGB CONC 33 g/dl (33.0-37.0); MEAN PLATELET VOLUME 10.5 fl (7.4-10.4); MONO # 0.6 (0.1-0.6); PLATELET COUNT 140 K/mm3 (130-400); RED BLOOD COUNT 3.21 M/mm3 (4.10-5.30); REDCELL DISTRIBUTION WIDTH-CV 13.7 % (11.5-14.5)
[2018-06-18 05:19] LABS: HEMATOCRIT 29.5 % (37.0-47.0); HEMOGLOBIN 9.6 g/dl (12.5-16.0); MEAN CORPUSCULAR HEMOGLOBIN 30 pg (27.0-31.0)
[2018-06-18 05:30] LABS: ALBUMIN 2.4 gm/dL (3.5-5.0); BILIRUBIN,TOTAL 0.4 mg/dL (0.0-1.0); CALCIUM 7.5 mg/dL (8.4-10.2); CREATININE, serum 1.54 mg/dL (0.52-1.25); MAGNESIUM 2.3 mg/dL (1.6-2.3); PHOSPHOROUS 4.8 mg/dL (2.5-4.5); POTASSIUM 3.7 mmol/L (3.4-5.0)
[2018-06-18 05:31] LABS: ARTERIAL BLD GAS O2 SATURATION 97.8 % (92-100); ARTERIAL BLD GAS TCO2 CT 20.8; ARTERIAL BLOOD GAS BASE EXCESS -4.6 (-2-2); ARTERIAL BLOOD GAS HCO3 19.8 meq/L (22-26); ARTERIAL BLOOD GAS PCO2 33.9 mmHg (35-45); ARTERIAL BLOOD GAS pH 7.38 (7.35-7.45)
[2018-06-18 05:32] LABS: ARTERIAL BLOOD GAS PO2 140.9 mmHg (80-100)
--- NOTE | 2018-06-18 06:42 | NUR ---
Sedation stopped for smart care cpap trial.
--- NOTE | 2018-06-18 07:11 | NUR ---
PT WAS PLACED ON CPAP AND WAS SETTING UP SMART CARE WHEN DAY SHIFT WOULD TAKE OVER AND WAKE UP PT MORE TO ASSESS READINESS FOR SMART CARE AND BREATHING TRIAL. WILL HAVE DAY SHIFT CONTINUE TO MONITOR AND ASSESS.
--- NOTE | 2018-06-18 07:15 | NUR ---
Pt on vent at this time, unable to fully assess all of suicide risk assessment.
--- NOTE | 2018-06-18 07:19 | NUR ---
Bedside report given to GAVIOTA Hamilton
--- NOTE | 2018-06-18 07:25 | NUR ---
Report received from Marko MEEK and care resumed.
--- NOTE | 2018-06-18 08:03 | NUR ---
Pt sedated on vent at this time. Will implement all psych precautions once extubated.
--- NOTE | 2018-06-18 09:00 | NUR ---
Pt is now extubated. Henderson in place for toileting needs. Pt remains NPO. Is able to turn and move self in bed.
--- NOTE | 2018-06-18 09:15 | NUR ---
with sterile technique right upper arm PICC dressing change done with insertion site cleansed with ChloraPrep 1, gauze removed with no drainage noted, skin prep, StatLock, and Tegaderm applied. No signs or symptoms of IV complications noted. No concerns voiced. Arm wrapped with Jeffrey to protect catheter.
--- NOTE | 2018-06-18 09:53 | NUR ---
PT EXTUBATED TO ROOM AIR AT 0840 THIS MORNING. FRANCY WELL. PT SUCTIONED ORALLY AND THROUGH ETT PRIOR TO EXTUBATION. SUCTIONED ORALLY POST EXTUBATION. PT HAS BILATERAL BREATH SOUNDS CLEAR, NO STRIDOR PRESENT AND IS ABLE TO SPEAK. VSS STABLE. SPO2 96% ON ROOM AIR, HR 68, RR 16. NO SIGNS OF DISTRESS. PT IS RESTING COMFORTABLY AT THIS TIME.
--- NOTE | 2018-06-18 10:45 | NUR ---
Dr Johnston in to see pt at this time.
--- NOTE | 2018-06-18 11:14 | NUR ---
location worker attended clinical rounds. Awaiting psychiatric evaluation due to possible overdose. Patient is positive for methamphetamines, THC, and amphetamines.
--- NOTE | 2018-06-18 15:20 | NUR ---
Dr Olivas in to see pt at this time.
--- NOTE | 2018-06-18 19:05 | NUR ---
Report given to Corina MEEK and care transfered.
--- NOTE | 2018-06-18 19:15 | NUR ---
HOSPITAL MONITORING EQUIPMENT IN PT ROOM ONLY. PT IN BED. PT FOLLOWS COMMANDS. PT ATE 100% DINNER AND REQUESTS WATER. WATER PROVIDED. NOTED AT SHIFT CHANGE BP DECREASED. WILL CONTINUE TO MONITOR.
--- NOTE | 2018-06-18 20:00 | NUR ---
WHILE FLUSHING PT IV, PT C/O PAIN. ONLY 3ML OF NS WAS FLUSHED. PT HAS PICC, PERIPHERAL IV D/C.
[2018-06-19] VITALS (53 sets, daily range): BP systolic 76–138; BP diastolic 52–90; PULSE 72–85; TEMP 98–98.6
--- NOTE | 2018-06-19 01:00 | NUR ---
PT BP DECREASED. PT PROVIDED ORAL HYDRATION. IV FLUIDS INFUSING. BP CUFF REPOSTITIONED.
--- NOTE | 2018-06-19 02:30 | NUR ---
PT ENCOURAGED TO CONTINUE TAKING IN ORAL FLUIDS. NOTED PT URINE OUTPUT DECREASING.
--- NOTE | 2018-06-19 05:00 | NUR ---
PT OUTPUT DECREASED. HOSPITALIST CONTACTED FOR FURTHER ORDERS.
[2018-06-19 06:00] LABS: BASO % 0.2 % (0.0-2.0); EOS # 0.2 (0.0-0.7); EOS % 4.3 % (0-4.0); GRAN # 3.1 (1.4-6.5); GRAN % 56.2 % (42.2-75.2); LYMPH # 1.7 (1.2-3.4); LYMPH % 31.2 % (20.0-51.0); MEAN CELL VOLUME 94 fl (80.0-100.0); MEAN CORPUSCULAR HGB CONC 32 g/dl (33.0-37.0); MEAN PLATELET VOLUME 10.8 fl (7.4-10.4); MONO # 0.4 (0.1-0.6); MONO % 7.7 % (1.7-9.3); PLATELET COUNT 133 K/mm3 (130-400); RED BLOOD COUNT 2.97 M/mm3 (4.10-5.30); REDCELL DISTRIBUTION WIDTH-CV 13.8 % (11.5-14.5)
[2018-06-19 06:09] LABS: ALBUMIN 2.4 gm/dL (3.5-5.0); BILIRUBIN,TOTAL 0.1 mg/dL (0.0-1.0); CALCIUM 7.3 mg/dL (8.4-10.2); CREATININE, serum 2.11 mg/dL (0.52-1.25); MAGNESIUM 2.1 mg/dL (1.6-2.3); POTASSIUM 3.9 mmol/L (3.4-5.0)
[2018-06-19 06:15] LABS: HEMATOCRIT 27.8 % (37.0-47.0); HEMOGLOBIN 8.9 g/dl (12.5-16.0); MEAN CORPUSCULAR HEMOGLOBIN 30 pg (27.0-31.0)
--- NOTE | 2018-06-19 07:10 | NUR ---
Report received from Corina MEEK and care resumed.
--- NOTE | 2018-06-19 08:10 | NUR ---
PICC intact right upper arm. No signs or symptoms IV complications noted. No concerns voiced. catheter changed and each port flushed with 10 mL normal saline with good blood return noted.
--- NOTE | 2018-06-19 09:28 | NUR ---
Dr Johnston in to see pt. Pt BP remains low along with low urine output. Cr elevated. Plan will be to keep in ICU until medically cleared for psych screen. Will restart levophed if needed to keep SBP >100. Pt awake this am and answering questions but states she just wants to be left alone to sleep. Heriy ordered for breakfast as blood sugars remain lower, currently 74. Will continue to follow.
[2018-06-19 11:52] LABS: URINE PROTEIN:CREAT RATIO 0.32 (0.00-0.14)
--- NOTE | 2018-06-19 12:40 | NUR ---
Pt sitting up in bed eating lunch at this time. States it hurts when she moves and is teary eyed. Pt encouraged to start moving around more as she has now been laying in bed for 4 days. Pt says she just wants to sleep. Will continue to follow.
--- NOTE | 2018-06-19 17:40 | NUR ---
Pt remains resting quietly at this time. VSS. Denies any concerns. Will continue to follow.
--- NOTE | 2018-06-19 19:03 | NUR ---
Pt helped to edge of bed and linens changed. Pt given wipes to clean self and gown was changed. Pt back in bed at this time waiting on dinner tray. Report given to Corina MEEK and care transfered.
[2018-06-20] VITALS (140 sets, daily range): BP systolic 119–166; BP diastolic 60–108; PULSE 73–97; TEMP 97.3–97.9; O2SAT 94–100
--- NOTE | 2018-06-20 06:45 | NUR ---
PT STATED SHE FELT WARM. AFEBRILE 97.3 ORAL. AIR TURNED ON IN RM. PT PROVIDED ORAL HYDRATION TO HELP W FEELING WARM AND FOR BS OF 61. BREAKFAST ORDERED FOR PT.
--- NOTE | 2018-06-20 07:18 | NUR ---
Report received from GAVIOTA Arriaga.
[2018-06-20 07:52] LABS: BASO % 0.2 % (0.0-2.0); EOS # 0.4 (0.0-0.7); EOS % 5.7 % (0-4.0); GRAN # 4.2 (1.4-6.5); GRAN % 68.8 % (42.2-75.2); LYMPH # 1.1 (1.2-3.4); LYMPH % 17.8 % (20.0-51.0); MEAN CELL VOLUME 93 fl (80.0-100.0); MEAN CORPUSCULAR HGB CONC 33 g/dl (33.0-37.0); MEAN PLATELET VOLUME 10.4 fl (7.4-10.4); MONO # 0.5 (0.1-0.6); MONO % 7.3 % (1.7-9.3); PLATELET COUNT 140 K/mm3 (130-400); RED BLOOD COUNT 3.59 M/mm3 (4.10-5.30); REDCELL DISTRIBUTION WIDTH-CV 13.4 % (11.5-14.5)
[2018-06-20 07:54] LABS: HEMATOCRIT 33.3 % (37.0-47.0); HEMOGLOBIN 10.9 g/dl (12.5-16.0); MEAN CORPUSCULAR HEMOGLOBIN 30 pg (27.0-31.0)
[2018-06-20 08:02] LABS: ALBUMIN 2.7 gm/dL (3.5-5.0); BILIRUBIN,TOTAL 0.2 mg/dL (0.0-1.0); CALCIUM 7.7 mg/dL (8.4-10.2); CREATININE, serum 2.13 mg/dL (0.52-1.25); MAGNESIUM 1.8 mg/dL (1.6-2.3); POTASSIUM 3.7 mmol/L (3.4-5.0); TOTAL PROTEIN 5.7 gm/dL (6.4-8.2)
--- NOTE | 2018-06-20 08:50 | NUR ---
PICC intact right upper arm. With sterile technique right upper arm PICC dressing change done with insertion site cleansed with ChloraPrep 1, StatLock, skin prep, and Tegaderm applied. No signs or symptoms of IV complications noted. No concerns voiced. Arm wrapped with Jeffrey to protect catheter.
--- NOTE | 2018-06-20 11:21 | NUR ---
JAYY met with patient to check her motivation to inpatient stay. PT reports that she would like to go home because she has two children and they would not have anywhere to stay. Pt reports that they children are with her mother and that the mother does not have an adequate support to provide care. Patient reports that she has a boyfriend but he is not of support at the moment. Patient details having mental health struggles that she is currently working with a therapist at [facility]. Patient reports that she has been off of psyc-meds for a year and has not been able to obtain them through [facility]. Patient reports that she is unemployed but recieves child-support, food assistance, and sub-rent. Patient reports that she is in constant pain due to Arthritis in her back. Pt reports she has been denied disability many times. Pt states, "I know I f-ed up.I am frustrated and everything snowballed. I am frustrated. I don't have anybody. I don't do anything. I don't do sh*t." Patient reports that she wants to see her children and boyfriend. Pt mother called to obtain information to take care of her bills. Pt stated that her mother doesn't have the means to pay her bills. Educated patient on her options. Patient reports that she doesnt want to go inpatient but wanted to know what happens if she refuses. Patient is not cleared for assessments. SW informed that [facility] will come out and complete an assessment when client is medically cleared. Will continue to follow.
--- NOTE | 2018-06-20 11:35 | NUR ---
tiller worker contacted [facility] screen[facility], and advised that when patient is medically stable we will request assistance with involuntary placement.
--- NOTE | 2018-06-20 13:26 | NUR ---
Per safety protocol, CPS report made for children in home Intake id [id number] at 01:25 p.m.
--- NOTE | 2018-06-20 17:15 | NUR ---
This RN gave report to phillip MEEK.
--- NOTE | 2018-06-20 17:41 | NUR ---
report received GAVIOTA Mauricio patient sitting up in bed eating supper
--- NOTE | 2018-06-20 18:07 | NUR ---
had supper and tolerated well, resting with eyes closed at this time
--- NOTE | 2018-06-20 18:49 | NUR ---
appears to be sleeping, lying on left side with eyes closed, resp quiet and easy
--- NOTE | 2018-06-20 19:00 | NUR ---
Bedside report recieved from GAVIOTA Marin. Patient sleeping but wakes to verbal stimulus. POC discussed and patient denies questions at this time. Care assumed.
--- NOTE | 2018-06-20 19:00 | NUR ---
bedside shift report given to GAVIOTA Lara, will provide water per her request
[2018-06-21] VITALS (942 sets, daily range): BP systolic 116–204; BP diastolic 74–113; PULSE 85–106; TEMP 98–98.2; O2SAT 60–100
--- NOTE | 2018-06-21 00:05 | NUR ---
Patient assisted with steady gait to and from bedside toilet. She is tearful at this time. Support is provided. Patient is offered drink and snack which is accepted. Denies further needs at this time.
[2018-06-21 05:33] LABS: BASO % 0.4 % (0.0-2.0); EOS # 0.3 (0.0-0.7); EOS % 5.8 % (0-4.0); GRAN # 3.3 (1.4-6.5); GRAN % 58.5 % (42.2-75.2); LYMPH # 1.5 (1.2-3.4); LYMPH % 26.4 % (20.0-51.0); MEAN CELL VOLUME 90 fl (80.0-100.0); MEAN CORPUSCULAR HGB CONC 33 g/dl (33.0-37.0); MONO # 0.5 (0.1-0.6); MONO % 8.5 % (1.7-9.3); PLATELET COUNT 156 K/mm3 (130-400); RED BLOOD COUNT 3.31 M/mm3 (4.10-5.30); REDCELL DISTRIBUTION WIDTH-CV 13.2 % (11.5-14.5)
[2018-06-21 05:38] LABS: HEMATOCRIT 29.9 % (37.0-47.0); HEMOGLOBIN 9.9 g/dl (12.5-16.0); MEAN CORPUSCULAR HEMOGLOBIN 30 pg (27.0-31.0)
[2018-06-21 05:46] LABS: ALBUMIN 2.5 gm/dL (3.5-5.0); BILIRUBIN,TOTAL 0.1 mg/dL (0.0-1.0); CALCIUM 7.7 mg/dL (8.4-10.2); CREATININE, serum 1.95 mg/dL (0.52-1.25); POTASSIUM 4.1 mmol/L (3.4-5.0); TOTAL PROTEIN 5.1 gm/dL (6.4-8.2)
--- NOTE | 2018-06-21 07:10 | NUR ---
Received report from GAVIOTA Lara.
--- NOTE | 2018-06-21 19:15 | NUR ---
REPORT GIVEN TO GAVIOTA CHANCE.
--- NOTE | 2018-06-21 20:00 | NUR ---
Assessment completed and charted at this time, please see documentation for details. Patient resting in bed, suicide precautions in place. Will continue to monitor.
[2018-06-22] VITALS (513 sets, daily range): BP systolic 150–163; BP diastolic 88–113; PULSE 91–99; TEMP 97.9–98.5; O2SAT 88–100
--- NOTE | 2018-06-22 01:00 | NUR ---
Patient resting in bed, expressing frustration upon still being here and why she can't talk to anyone. Explained to patient she is here on suicide precautions because she attempted suicide and visitors and interactions are restricted for patient safety.
[2018-06-22 05:36] LABS: BASO % 0.3 % (0.0-2.0); EOS # 0.3 (0.0-0.7); EOS % 4.2 % (0-4.0); GRAN # 4.6 (1.4-6.5); GRAN % 65.1 % (42.2-75.2); LYMPH # 1.5 (1.2-3.4); LYMPH % 21.7 % (20.0-51.0); MEAN CELL VOLUME 89 fl (80.0-100.0); MEAN CORPUSCULAR HGB CONC 33 g/dl (33.0-37.0); MEAN PLATELET VOLUME 9.9 fl (7.4-10.4); MONO # 0.6 (0.1-0.6); MONO % 8.4 % (1.7-9.3); PLATELET COUNT 165 K/mm3 (130-400); RED BLOOD COUNT 3.34 M/mm3 (4.10-5.30); REDCELL DISTRIBUTION WIDTH-CV 13.2 % (11.5-14.5)
[2018-06-22 05:37] LABS: HEMATOCRIT 29.8 % (37.0-47.0); HEMOGLOBIN 9.9 g/dl (12.5-16.0); MEAN CORPUSCULAR HEMOGLOBIN 30 pg (27.0-31.0)
[2018-06-22 05:53] LABS: CREATININE, serum 1.93 mg/dL (0.52-1.25); MAGNESIUM 1.3 mg/dL (1.6-2.3); POTASSIUM 4.1 mmol/L (3.4-5.0)
--- NOTE | 2018-06-22 07:15 | NUR ---
Patient report given to GAVIOTA Faye at this time. Passing off care at this time.
--- NOTE | 2018-06-22 07:49 | NUR ---
Pt sleeping at this time. No signs of pain. Will continue to follow.
--- NOTE | 2018-06-22 09:15 | NUR ---
Dr Segura in to see pt at this time.
--- NOTE | 2018-06-22 10:21 | NUR ---
Dr Mosher notified of consult.
--- NOTE | 2018-06-22 10:39 | NUR ---
Pt asking Dr to call kids or have phone. Was explaied that per policy she is unable to make phone calls or receive calls until after she has been screened. Pt stated understanding. Will continue to follow.
--- NOTE | 2018-06-22 11:27 | NUR ---
Dr Mosher in to see pt at this time.
--- NOTE | 2018-06-22 13:31 | NUR ---
Pt talking with [facility] from [facility] at this time.
--- NOTE | 2018-06-22 14:57 | NUR ---
Pt remains talking with [facility] at this time.
[2018-06-22] MEDS ORDERED: NORVASC 5MG5 MG/TAB PO (17:10)
[2018-06-22] MEDS ORDERED: MAG-OX 400400 MG/TAB PO (17:13)
--- NOTE | 2018-06-22 17:17 | NUR ---
Plan is for discharge once safety plan received from [facility] screener. Dr Segura was updated and in agreement.
--- NOTE | 2018-06-22 19:12 | NUR ---
Report given to Chun MEEK and care transfered.
--- NOTE | 2018-06-22 19:59 | NUR ---
Patient discharged at this time, PICC removed, see documentation for details. Patient escorted out by this nurse and mother. No new issues to report.
== END 2018-06-22 19:59 | disposition home or self-care (01) | DRG 917 ==
LOC: COL.ER 08:07 → ICU 11:13
PROVIDERS: Emergency Medicine; Internal Medicine Critical Care Medicine; ADMIT Internal Medicine
PROC: 5A1945Z Respiratory Ventilation, 24-96 Consecutive Hours (ICD-10-PCS; principal; 2018-06-16)
DX: T43.621A Poisoning by amphetamines, accidental (unintentional), initial encounter (principal); G92 Toxic encephalopathy; J96.00 Acute respiratory failure, unspecified whether with hypoxia or hypercapnia; N17.9 Acute kidney failure, unspecified; N39.0 Urinary tract infection, site not specified; E87.1 Hypo-osmolality and hyponatremia; M62.82 Rhabdomyolysis; I10 Essential (primary) hypertension; E78.5 Hyperlipidemia, unspecified; E11.9 Type 2 diabetes mellitus without complications; F31.9 Bipolar disorder, unspecified; F17.210 Nicotine dependence, cigarettes, uncomplicated; Z88.6 Allergy status to analgesic agent; Z88.8 Allergy status to other drugs, medicaments and biological substances; Z91.048 Other nonmedicinal substance allergy status; E87.5 Hyperkalemia; E66.9 Obesity, unspecified; G40.909 Epilepsy, unspecified, not intractable, without status epilepticus
CPT/HCPCS: 99232-AI; 99233-AI; 99239; A4216; C1751; C1894; J0610; J0696; J1644; J1650; J1815; J1940; J2250; J2310; J2543; J2704; J3370; J3475; J7030; J7040; J7050; J7060

== ENCOUNTER → 2018-07-21 | Outpatient (CLI) | payer MEDICAID ==
[~2018-07-21] MED LIST changes: +MAG-OX 400400 MG/TAB PO; +NORVASC 5MG5 MG/TAB PO
== END ==
LOC: COL.RAD 10:34
DX: E11.621 Type 2 diabetes mellitus with foot ulcer (principal); L97.519 Non-pressure chronic ulcer of other part of right foot with unspecified severity

== ENCOUNTER → 2018-10-22 | Outpatient (CLI) | payer OTHER | LOC: COL.RAD 11:28 | DX: Z02.71 Encounter for disability determination (principal); M54.5 Low back pain; M25.562 Pain in left knee; Z97.5 Presence of (intrauterine) contraceptive device ==

== ENCOUNTER 2018-11-19 13:00 | Outpatient (RCR) | payer MEDICAID | END 2018-12-22 10:22 | disposition home or self-care (01) | LOC: MKS.ESL.PT 13:00 | DX: M23.92 Unspecified internal derangement of left knee (principal) ==

== ENCOUNTER 2019-11-13 05:23 | Day surgery (SDC) | payer MEDICAID ==
[~2019-11-13] VITALS: Ht 165.1 cm; Wt 93.3 kg
[2019-11-13] VITALS (7 sets, daily range): BP systolic 107–140; BP diastolic 74–82; PULSE 92–96; TEMP 97.4–98.7
--- NOTE | 2019-11-13 06:00 | NUR ---
Patient states she has an allergy to rubbing alcohol. States her reaction is anaphylaxis. The allergy is documented and OR staff is notified. Iodine is used instead of alcohol to prep her IV site.
[2019-11-13] MEDS ORDERED: GLUCOTROL XL10 MG PO (06:11)
[2019-11-13] MEDS ORDERED: PRILOTC PO (06:11)
[2019-11-13] MEDS ORDERED: CLARITIN 1010 MG/TAB PO (06:11)
[2019-11-13] MEDS ORDERED: CANA100T PO (06:11)
[2019-11-13] MEDS ORDERED: SODIUM BICARBO650 MG PO (06:12)
[2019-11-13] MEDS ORDERED: LOMOTIL 0.025 M1 TAB PO (06:12)
[2019-11-13 06:27] LABS: TRICYCLIC ANTIDEPRESS URINE NEGATIVE
--- NOTE | 2019-11-13 07:09 | NUR ---
Dr. Pretty is at the bedside at this time.
--- NOTE | 2019-11-13 07:09 | NUR ---
Patient to the OR at this time with GAVIOTA Erickson.
[2019-11-13] MEDS ORDERED: NORCO 325 MG-51 TAB PO (08:17)
--- NOTE | 2019-11-13 09:25 | NUR ---
The patient arrives to [facility] [facility] via cart, accompanied by the DISCOUNT CLERK, Cassie Bravo. She is lying in bed, drowsy, easily awakened to voice. When awakened, she states her pain is a 9/10 left upper quadrant. She has recently received pain medication for this pain. VSS on 2 L nasal cannula. She states she is dizzy. She denies nausea. Lights are dimmed for comfort. Plan of care is discussed. IVF are TKO. Call light is in reach. She is given her glasses. She is contact isolation for positive MRSA Nares screening.
--- NOTE | 2019-11-13 09:40 | NUR ---
VSS and WNL on 2L nasal cannula. She is asleep.
--- NOTE | 2019-11-13 09:55 | NUR ---
VSS and WNL on room air. Patient is sleeping in her room.
--- NOTE | 2019-11-13 10:10 | NUR ---
Patient awakens when nursing staff checks on her. She states she has some mild nausea and pain in her abdomen. She sits up in bed with staff assistance. She is given some crackers and sprite. She is agreeable to having something to eat, then trying a PO pain medication for pain. Will continue to monitor.
--- NOTE | 2019-11-13 10:52 | NUR ---
Patient ambulates to the restroom with stanby assistance from staff. She voids a large amount of clear yellow urine. She tolerates ambulating well. She returns to her room to eat/drink.
--- NOTE | 2019-11-13 11:10 | NUR ---
Patient is resting in her room. She complains of mild abdominal pain and the start of a migraine. She is given PO [place] for pain. She states she is ready to go home. She has ate/drank sprite and crackers. She refused a blood sugar check post-op and states "my blood sugar is fine". Will contact the patient's ride and return with discharge instructions.
--- NOTE | 2019-11-13 11:42 | NUR ---
Discharge instructions are discussed with the patient. She denies any questions and verbalizes understanding. She is given a paper prescription for [place] in her discharge packet. PIV is removed with catheter intact and hemostasis achieved. She uses the restroom again. She changes to her clothing independently. She is escorted to the exit via wheelchair. She is discharged to home with ride in private vehicle at 1142.
== END 2019-11-13 11:42 | disposition home or self-care (01) ==
LOC: SDCO 05:23
PROVIDERS: Nurse Anesthetist, Certified Registered
DX: K80.10 Calculus of gallbladder with chronic cholecystitis without obstruction (principal); K59.1 Functional diarrhea; E11.22 Type 2 diabetes mellitus with diabetic chronic kidney disease; I12.9 Hypertensive chronic kidney disease with stage 1 through stage 4 chronic kidney disease, or unspecified chronic kidney disease; N18.2 Chronic kidney disease, stage 2 (mild); Z88.8 Allergy status to other drugs, medicaments and biological substances; E66.9 Obesity, unspecified; K21.9 Gastro-esophageal reflux disease without esophagitis; F60.3 Borderline personality disorder; F31.9 Bipolar disorder, unspecified; F41.9 Anxiety disorder, unspecified; G43.909 Migraine, unspecified, not intractable, without status migrainosus; F17.210 Nicotine dependence, cigarettes, uncomplicated; Z68.34 Body mass index [BMI] 34.0-34.9, adult; Z79.84 Long term (current) use of oral hypoglycemic drugs; Z79.899 Other long term (current) drug therapy
CPT/HCPCS: J0690; J1100; J1170; J1885; J2405; J2550; J2704; J3010; J7030

== ENCOUNTER 2022-01-15 09:18 | Emergency (ER) | payer MEDICAID ==
[~2022-01-15] VITALS: Ht 165.1 cm; Wt 111.4 kg
[~2022-01-15 09:18] MED LIST changes: +CANA100T PO; +CLARITIN 1010 MG/TAB PO; +GLUCOTROL XL10 MG PO; +LOMOTIL 0.025 M1 TAB PO; +PRILOTC PO; +SODIUM BICARBO650 MG PO
[2022-01-15 09:41] VITALS: TEMP 98.3
[2022-01-15 11:05] LABS: BASO % 0.4 % (0.0-2.0); EOS # 0.4 K/mm3 (0.0-0.7); EOS % 3.6 % (0.0-4.0); GRAN # 7.5 K/mm3 (1.4-6.5); GRAN % 68.2 % (42.2-75.2); HEMOGLOBIN 13.5 g/dl (12.5-16.0); LYMPH # 2.3 K/mm3 (1.2-3.4); MEAN CELL VOLUME 84 fl (80.0-100.0); MEAN CORPUSCULAR HEMOGLOBIN 30 pg (27-31); MEAN CORPUSCULAR HGB CONC 36 g/dl (33.0-37.0); MEAN PLATELET VOLUME 10.4 fl (7.4-10.4); MONO # 0.7 K/mm3 (0.1-0.6); MONO % 6.4 % (1.7-9.3); PLATELET COUNT 197 K/mm3 (130-400); RED BLOOD COUNT 4.54 M/mm3 (4.10-5.30)
[2022-01-15 11:29] LABS: ALBUMIN 3.3 gm/dL (3.5-5.0); BILIRUBIN,TOTAL 0.4 mg/dL (0.2-1.2); CALCIUM 9.6 mg/dL (8.4-10.2); CREATININE, serum 1.76 mg/dL (0.57-1.11); POTASSIUM 4.9 mmol/L (3.5-4.5); TOTAL PROTEIN 7.4 gm/dL (6.2-8.1)
[2022-01-15 12:12] LABS: COLLECTION METHOD CLEAN CATCH
[2022-01-15 12:28] LABS: PH 5 (5-8); URINE APPEARANCE Hazy (CLEAR/HAZY); URINE BACTERIA Rare /hpf (NONE SEEN); URINE BLOOD 1+ (NEGATIVE); URINE COLOR Yellow (YELLOW); URINE GLUCOSE 3+ (NEGATIVE); URINE KETONE Negative (NEGATIVE); URINE NITRATE Negative (NEGATIVE); URINE PROTEIN(semi-quant) 2+ (NEGATIVE); URINE UROBILINOGEN Negative (NEGATIVE)
[2022-01-15] MEDS ORDERED: FLEXERIL 1010 MG/TAB PO (13:17)
[2022-01-15 14:06] VITALS: BP 143/81; PULSE 93
== END 2022-01-15 14:12 | disposition home or self-care (01) ==
LOC: COL.ER 09:18
PROVIDERS: Nurse Practitioner Primary Care
DX: M62.838 Other muscle spasm (principal); E11.22 Type 2 diabetes mellitus with diabetic chronic kidney disease; N18.9 Chronic kidney disease, unspecified; I95.9 Hypotension, unspecified; E11.65 Type 2 diabetes mellitus with hyperglycemia; Z20.822 Contact with and (suspected) exposure to COVID-19; Z28.310 Unvaccinated for COVID-19
CPT/HCPCS: J7030

== ENCOUNTER 2024-03-09 17:43 | Inpatient (IN) | payer MEDICAID ==
[~2024-03-09] VITALS: Ht 167.6 cm; Wt 117.3 kg
[~2024-03-09 17:43] MED LIST changes: +FLEXERIL 1010 MG/TAB PO
[2024-03-09 19:08] LABS: BASO % 0.4 % (0.0-2.0); EOS # 0.4 K/mm3 (0.0-0.7); EOS % 4.4 % (0.0-4.0); GRAN # 6.2 K/mm3 (1.4-6.5); HEMOGLOBIN 11.6 g/dl (12.5-16.0); LYMPH # 2.4 K/mm3 (1.2-3.4); LYMPH % 24.8 % (20.0-51.0); MEAN CELL VOLUME 89 fl (80.0-100.0); MEAN CORPUSCULAR HEMOGLOBIN 29 pg (27-31); MEAN CORPUSCULAR HGB CONC 33 g/dl (33.0-37.0); MEAN PLATELET VOLUME 10.5 fl (7.4-10.4); MONO # 0.6 K/mm3 (0.1-0.6); MONO % 6.2 % (1.7-9.3); PLATELET COUNT 241 K/mm3 (130-400); RED BLOOD COUNT 3.98 M/mm3 (4.10-5.30); REDCELL DISTRIBUTION WIDTH-CV 12.8 % (11.5-14.5)
[2024-03-09 19:13] LABS: HEMATOCRIT 35.4 % (37.0-47.0)
[2024-03-09 19:33] LABS: ALBUMIN 2.5 g/dL (3.5-5.0); BILIRUBIN,TOTAL 0.3 mg/dL (0.2-1.2); CALCIUM 8.2 mg/dL (8.4-10.2); CREATININE, serum 3.45 mg/dL (0.57-1.11); POTASSIUM 4.7 mEq/L (3.5-4.5); TOTAL PROTEIN 6.5 g/dl (6.2-8.1)
[2024-03-09] MEDS ORDERED: NS 1,000 ML IV ONE ×2 (20:00→21:00)
[2024-03-09] MEDS ORDERED: Insulin Regular Human (NovoLIN R/HumuLIN R) IV ONE (20:45)
[2024-03-09] MEDS ORDERED: Insulin Regular Human (NovoLIN R/HumuLIN R) SQ ONE (21:00)
[2024-03-09] MEDS ORDERED: LR 1,000 ML IV ONE (21:00)
[2024-03-09] MEDS ORDERED: ZOHYDRO ER10 MG PO (21:10)
[2024-03-09 21:35] LABS: COLLECTION METHOD CLEAN CATCH
[2024-03-09] MEDS ORDERED: Ondansetron 4 MG/2 ML VIAL IV PRN (21:45)
[2024-03-09] MEDS ORDERED: Acetaminophen 500 MG TAB PO PRN (21:45)
[2024-03-09 21:59] VITALS: BP 174/99; PULSE 88; TEMP 97.3
[2024-03-09] MEDS ORDERED: Dextrose (Glucose) 15 GM (4 x 3.75 GM) Chewable TABLET PACK PO PRN (22:00)
[2024-03-09] MEDS ORDERED: LR 1,000 ML IV SCH (22:00)
[2024-03-09] MEDS ORDERED: Dextrose 50% Water 25 GM/50 ML SYRINGE IV PRN (22:00)
[2024-03-09] MEDS ORDERED: Glucagon 1 MG VIAL IM PRN (22:00)
[2024-03-09 22:03] LABS: PH 5.5 (5.0-8.5); URINE APPEARANCE CLEAR (CLEAR/HAZY); URINE BLOOD 1+ (NEGATIVE); URINE COLOR YELLOW (YELLOW); URINE GLUCOSE 3+ (NEGATIVE); URINE KETONE NEGATIVE (NEGATIVE); URINE NITRATE NEGATIVE (NEGATIVE); URINE PROTEIN(semi-quant) 4+ (NEGATIVE); URINE UROBILINOGEN 0.2 E.U/dL (0.2-1.0)
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
[2024-03-09 22:34] VITALS: BP_SYST 185
[2024-03-09] MEDS ORDERED: hydrALAZINE 20 MG/ML 1 ML VIAL IV PRN (23:30)
[2024-03-10] VITALS (12 sets, daily range): BP systolic 128–185; BP diastolic 79–105; PULSE 72–97; TEMP 98.1–98.7
[2024-03-10] MEDS ORDERED: Heparin 5,000 UNITS/ML 1 ML VIAL SQ SCH
--- NOTE | 2024-03-10 00:45 | NUR ---
b/p 185/101 at [place]-- did give apresoline IV as ordered prn-- now B/P 153/79.
--- NOTE | 2024-03-10 06:20 | NUR ---
Called to patients room, pt states she is itching "all over", very aggressively itching her face/arms/legs,no redness or rash noted, no wheezing or SOB noted, will call for orders.
--- NOTE | 2024-03-10 06:50 | NUR ---
Dr. Segura called to inform of itching all over-- no answer at this time, message left.
--- NOTE | 2024-03-10 06:51 | NUR ---
bedside shift report received from GAVIOTA Zhong, patient is in bed and scratching all over stating she must allergic to something, Farheen, will notify
--- NOTE | 2024-03-10 07:20 | NUR ---
Did get emmy of [facility], informed of events of this am, pt states she is still itching all over, feels hot, states its from the Protonix med I gave her about 45 minutes ago- states she has never had Protonix.no wheezing/SOB noted, no redness/rash noted. She will put in an order for Benadryl.
[2024-03-10] MEDS ORDERED: diphenhydrAMINE 25 MG CAP PO ONE (07:30)
--- NOTE | 2024-03-10 07:45 | NUR ---
continues to c/o itching but was just medicated by Farheen MEEK with benadryl, full assessment completed, see interventions for further info, has small little spots/scars/scabs all over her body, she states this is from bugs that she got at home, has ordered breakfast,
--- NOTE | 2024-03-10 08:15 | NUR ---
states her itching is still really bad, on observation of patient from the door before entering room she is not scratching and she is sitting up eating breakfast, when asked she states the itching is better since benadryl,
[2024-03-10 09:24] LABS: BASO % 0.5 % (0.0-2.0); EOS # 0.5 K/mm3 (0.0-0.7); EOS % 5.7 % (0.0-4.0); GRAN # 4.4 K/mm3 (1.4-6.5); GRAN % 51.9 % (42.2-75.2); HEMOGLOBIN 11.1 g/dl (12.5-16.0); LYMPH % 34.9 % (20.0-51.0); MEAN CELL VOLUME 88 fl (80.0-100.0); MEAN CORPUSCULAR HEMOGLOBIN 29 pg (27-31); MEAN CORPUSCULAR HGB CONC 33 g/dl (33.0-37.0); MEAN PLATELET VOLUME 10.9 fl (7.4-10.4); MONO # 0.6 K/mm3 (0.1-0.6); MONO % 6.8 % (1.7-9.3); PLATELET COUNT 213 K/mm3 (130-400); RED BLOOD COUNT 3.81 M/mm3 (4.10-5.30)
[2024-03-10 09:28] LABS: HEMATOCRIT 33.6 % (37.0-47.0)
[2024-03-10 09:37] LABS: CALCIUM 8.2 mg/dL (8.4-10.2); CREATININE, serum 3.32 mg/dL (0.57-1.11); POTASSIUM 4.7 mEq/L (3.5-4.5)
[2024-03-10] MEDS ORDERED: hydrALAZINE 20 MG/ML 1 ML VIAL IV PRN (10:15)
[2024-03-10] MEDS ORDERED: amLODIPine 10 MG TAB PO SCH (10:30)
[2024-03-10] MEDS ORDERED: hydrOXYzine HCl 25 MG TAB PO ONE (11:00)
--- NOTE | 2024-03-10 11:20 | NUR ---
attempted to given atarax and she is concerned this is something she has been told in the past not to take, is researching it on the internet and given [facility] education on atarax to review, will let this nurse know if she agrees to take it
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
[2024-03-10] MEDS ORDERED: Sodium Bicarbonate 650 MG TAB PO SCH (12:00)
[2024-03-10] MEDS ORDERED: Insulin Lispro (HumaLOG) SQ SCH ×2 (12:00)
--- NOTE | 2024-03-10 13:00 | NUR ---
patient cooperative and 2 blood culture specimens have been obtained, setting up and eating lunch
--- NOTE | 2024-03-10 15:00 | NUR ---
resting in bed and denies c/os or needs
[2024-03-10 16:41] LABS: CREATININE, serum 3.39 mg/dL (0.57-1.11); POTASSIUM 4.8 mEq/L (3.5-4.5)
--- NOTE | 2024-03-10 18:10 | NUR ---
sitting up in bed visiting with a friend, will order supptere woon
--- NOTE | 2024-03-10 19:07 | NUR ---
bedde shift report given to GAVIOTA Marcum
[2024-03-11] VITALS (12 sets, daily range): BP systolic 127–168; BP diastolic 76–96; PULSE 90–99; TEMP 98–98.5
[2024-03-11 00:11] LABS: CHOLESTEROL RISK RATIO 6.7
[2024-03-11 01:31] LABS: CALCIUM 8.2 mg/dL (8.4-10.2); CREATININE, serum 3.51 mg/dL (0.57-1.11); POTASSIUM 4.9 mEq/L (3.5-4.5)
[2024-03-11 06:46] LABS: BASO % 0.4 % (0.0-2.0); EOS # 0.4 K/mm3 (0.0-0.7); EOS % 5.4 % (0.0-4.0); GRAN # 3.7 K/mm3 (1.4-6.5); GRAN % 47.5 % (42.2-75.2); MEAN CELL VOLUME 88 fl (80.0-100.0); MEAN CORPUSCULAR HGB CONC 33 g/dl (33.0-37.0); MONO # 0.6 K/mm3 (0.1-0.6); MONO % 7.6 % (1.7-9.3); PLATELET COUNT 230 K/mm3 (130-400); RED BLOOD COUNT 3.34 M/mm3 (4.10-5.30); REDCELL DISTRIBUTION WIDTH-CV 13.1 % (11.5-14.5)
[2024-03-11 06:49] LABS: HEMATOCRIT 29.3 % (37.0-47.0); HEMOGLOBIN 9.7 g/dl (12.5-16.0); MEAN CORPUSCULAR HEMOGLOBIN 29 pg (27-31)
--- NOTE | 2024-03-11 08:30 | NUR ---
Patient laying in bed, A&Ox4. VSS. IV CDI. Denies pain and discomfort. Contact precautions in place. Call light within reach
[2024-03-11] MEDS ORDERED: Sodium Zirconium Cyclosilicate for Oral Susp 10 GM PACKET PO ONE (10:15)
[2024-03-11] MEDS ORDERED: Insulin Glargine-ygfn (Lantus) SQ SCH (10:30)
[2024-03-11] MEDS ORDERED: Clindamycin 150 MG CAP PO SCH (13:00)
--- NOTE | 2024-03-11 13:57 | NUR ---
SW was made aware by RN that pt has trouble affording her insulin. SW called pt's pharmacy, [facility] to try to get further information on coverage with her insurance. Pharmacist could not give a cost or details without a script. Pt's insulin, lantus, and lispro medication are on the [facility] preferred medication list. Discharge Plan: home, might need med assistance
--- NOTE | 2024-03-11 16:49 | NUR ---
[id number] EDUCATION CONSULT FOR 44 YO T2DM PATIENT. A1C 10.2% AND GLUCOSE 307 MG/DL ON ADMIT. PATIENT NOW ON 8 UNITS LANTUS SQHS AND HIGH SSI. PATIENT IS DIFFICULT TO CONVERSE WITH AND CANNOT STAY ON TRACK DURING CONVERSATION. SHE IS RESISTANT TO EDUCATION STATING "THE ONLY REASON MY BLOOD SUGARS ARE HIGH IS BECAUSE OF MY STUPID INSURANCE NOT COVERING DIABETES MEDS". PATIENT STATES AROUND 2019 SHE WAS TAKING: GLIPIZIDE XR 10 MG/DAY AND INVOKANA 100MG/DAY AND THIS WAS CONTROLLING HER BLOOD GLUCOSE VERY WELL; SHE STATES HER A1C WAS <7.0% AT THAT TIME. AT SOME POINT SHE STATES HER INSURANCE PLAN STOPPED COVERING ALL DIABETES MEDICATIONS WELL BLOOD GLUCOSE TESTING SUPPLIES. PATIENT REPORTS NEGATIVE SIDE EFFECTS IN THE PAST FROM THE FOLLOWING DIABETES MEDICATIONS SHE HAS TRIED: METFORMIN (REGULAR AND EXTENDED RELEASE) AND BYDUREON INJECTION (STATED SHE HAD 'SEVERE SIDE EFFECTS'). PATIENT WISHES FOR ASSISTANCE TRYING TO RE-ESTABLISH CARE WITH FORMER PROVIDER SHE SAW; BETO MICHELLE, WHO IS NOW AT [facility]. REQUEST FOR SOCIAL WORK TO ASSIST PATIENT WITH ESTABLISHMENT OF PCP PRIOR TO DISCHARGE. PATIENT WILL ALSO NEED THE FOLLOWING SUPPLIES ORDERED PRIOR TO DISCHARGE: GLUCOMETER, TEST STRIPS, LANCETS, AND LANCING DEVICE SHE STATES HER INSURANCE STOPPED COVERING THESE WELL SEVERAL YEARS AGO. PATIENT STATES SHE WENT THROUGH THE DIABETES EDUCATION CLASSES YEARS AGO AT THE HOSPITAL, AND DOES NOT FEEL SHE NEEDS FURTHER EDUCATION. LINCOLN YANEZ, MS,RD,CSSD,LD
--- NOTE | 2024-03-11 20:12 | NUR ---
PATIENT SITTING UP IN BED. REPORTING SOME PAIN IN HER BACK RATED 7/10 AND MOUTH PAIN FROM AN ABCESS RATED 2/10. DENIES NAUSEA, CHEST PAIN, SHORTNESS OF BREATH. CALL LIGHT WITHIN REACH. IV PLACED IN STANDBY FOR HER TO SHOWER. REQUESTS TO WAIT TO CHECK BLOOD SUGAR SHE JUST FINISHED EATING AN HOUR AGO. BED IS LOCKED AND IN LOW POSITION.
[2024-03-11] MEDS ORDERED: Atorvastatin 20 MG TAB PO SCH (21:00)
[2024-03-11] MEDS ORDERED: Sodium Bicarbonate 650 MG TAB PO SCH (21:00)
[2024-03-12] VITALS (7 sets, daily range): BP systolic 135–189; BP diastolic 67–84; PULSE 101–115; TEMP 98.2–98.4
--- NOTE | 2024-03-12 01:59 | NUR ---
Patient is incredibly anxious regarding her care and has several questions. Asked PCT if she could have some information about a low potassium diet because she states a doctor told her during rounds that she needed to be on one but gave her no information. Also wants to discuss her renal ultrasound, this RN advised her to ask provider during morning rounds. Patient then asked why the doctor during the day told her she wouldn't need to have labs drawn anymore after being switched from IV antibiotic to PO antibiotic if she is supposed to be having her kidney function monitored, this RN did check current lab orders and informed her that she will still be having lab work done in the morning and that lab orders were not discontinued. Advised her that it would be best to write down all of her questions so she can remember to ask them during rounds since patient stated she has difficulty remembering everything she wants to say since there is so much happening all at once. She continued to ask questions regarding medical provider's decision making despite this RN attempting to inform her that unfortunately I do not have those answers and she will need to ask the provider in the morning. Patient then went back to talking about her anxiety and how she refused hydroxizine because she was once told it would "make her kidneys shut down" and that all the providers are contradicting each other and she's having to educate herself online. RN advised her that it is probably best to avoid attempting to self educate when she is anxious and does not have all the available information because what she finds on the internet will just increase her anxiety. She again stated that she feels she does have to look things up on her own since the providers are giving her "contradicting" information. Since the conversation was not making any progress, this RN again suggested she write down her questions and then left the room.
--- NOTE | 2024-03-12 06:12 | NUR ---
This RN entered room to hang new bag of IV fluids and found patient to be sitting on edge of bed with molder labels also in room. Patient was requesting help to stand up because she "didn't feel stable" and was "swollen all over" also stated there was sharp pain in her head and was sweating all over. RN did not note any increased swelling in either arm or leg and patient did not appear to be sweating. Was going back and forth between describing her symptoms and noting the "contradicting information" in the education packets she requested on a low potassium diet. Vital signs obtained and blood pressure was elevated with systolic of 179 so prn 10mg IV hydralazine is given along with 1000mg po tylenol which patient initially refused stating "that's not enough". RN asked dry pan charger Madi to also evaluate patient, Wolfgang agreed with current treatment and attempted to reassure patient as well. Patient is back to laying in bed and lab was able to successfully draw morning labs despite patient stating she would curse and "swing" being poked by the needle. Will recheck blood pressure 15 minutes following administration of hydralazine.
--- NOTE | 2024-03-12 06:45 | NUR ---
PATIENT NOW COMPLAINING OF CHEST PAIN AND CONTINUES TO BE QUITE ANXIOUS. DISCUSSED WITH BOTH DAY AND NIGHT CHARGE NURSES. ORDER PLACED FOR EKG, RT AWARE
--- NOTE | 2024-03-12 06:48 | NUR ---
ATTEMPTED TO CALL DAY HOSPITALIST, DR. Domonique ELLISON, HOWEVER BUSY SIGNAL RECEIVED.
--- NOTE | 2024-03-12 06:56 | NUR ---
this RN notified by primary RN of pt reporting chest pain and shortness of breath along with headache and additional pains/aches. this RN assessed pt with primary RN, primary RN attempt to notify hospitalist, EKG order placed, hydralazine given for elevated blood pressure and tylenol for pain.
[2024-03-12 06:57] LABS: BASO % 0.4 % (0.0-2.0); EOS # 0.6 K/mm3 (0.0-0.7); EOS % 6.3 % (0.0-4.0); GRAN # 4.6 K/mm3 (1.4-6.5); GRAN % 51.2 % (42.2-75.2); LYMPH # 3.1 K/mm3 (1.2-3.4); LYMPH % 34.1 % (20.0-51.0); MEAN CELL VOLUME 89 fl (80.0-100.0); MEAN CORPUSCULAR HGB CONC 33 g/dl (33.0-37.0); MONO # 0.7 K/mm3 (0.1-0.6); MONO % 7.8 % (1.7-9.3); PLATELET COUNT 274 K/mm3 (130-400); RED BLOOD COUNT 4.08 M/mm3 (4.10-5.30); REDCELL DISTRIBUTION WIDTH-CV 13.2 % (11.5-14.5)
--- NOTE | 2024-03-12 07:01 | NUR ---
EKG COMPLETE, SUPERVISOR CARDING INFORMED THIS RN THAT PATIENT IS IN A-FLUTTER. INFORMED CUSTOMER RELATIONS COORDINATOR. AGAIN ATTEMPTED TO CONTACT HOSPITALIST DR. HUMPHREYS WITH NO ANSWER.
[2024-03-12 07:18] LABS: HEMATOCRIT 36.1 % (37.0-47.0); HEMOGLOBIN 11.8 g/dl (12.5-16.0); MEAN CORPUSCULAR HEMOGLOBIN 29 pg (27-31)
[2024-03-12 07:22] LABS: CALCIUM 8.4 mg/dL (8.4-10.2); CREATININE, serum 3.69 mg/dL (0.57-1.11); POTASSIUM 4.6 mEq/L (3.5-4.5)
--- NOTE | 2024-03-12 07:53 | NUR ---
THIS RN WAS NOTIFIED BY PCT OF MEWS SCORE OF 5. THIS RN ASSESSED PATIENT. PATIENT SITTING UP IN BED TALKING TO SOMEONE ON THE PHONE. PATIENT APPEARS ANXIOUS. HANGS UP THE PHONE AND SAYS "SORRY I DIDN'T WANT TO TELL MY BROTHER ALL THAT WAS GOING ON IN A TEXT." THIS RN CALLED CAT CALL AND NOTIFIED PROVIDER. PATIENT HAS INCREASED RR, SAYS SHE "HURTS AND FEELS SWOLLEN ALL OVER." BOTH THIS RN AND WATER SUPERVISOR ATTEMPTED TO GET PATIENT TO BREATHE IN THROUGH NOSE AND OUT THROUGH MOUTH. PATIENT STATES SHE CAN'T D/T NOSE BEING STUFFED UP. VSS.
--- NOTE | 2024-03-12 09:01 | NUR ---
This RN was called by GAVIOTA Arguello on the third floor for a CAT call on this patient for a MEWS score of 5. Upon arrival the patient was sitting up in bed and is A&OX4 on room air. Pt states she is just very anxious and feels like she is going to . She is in so much pain. When asked where the pain was pt grabbed her chest and said her chest and left arm and now right arm and her fingers are swelling. Jos stated EKG was prefmored this morning and pt was in aflutter. Pt is tachypenic with RR in the 30s. Attempts made to redirect pt and encouraged her to take slow deep breaths in through her nose for a count of 5 seconds and blow out for 5 seconds. Pt states she can not breath through her nose because she had a bloody nose last night and can not breath through it. This RN encouraged pt to stop talking and focus on breathing slowing to help calm down, Pt continues to talk and tell me about her blood nose and that she can't seem to count to 5 at this time. Lungs are CTA, pt remains on room air. Dr. Domonique Henson noted and stated she has been anxious for days because she does not want to go home and has been asking for ativan multiple times. No new orders at this time. CAT call ended, pt remins in room on room air and in current room. This RN will follow up with GAVIOTA Arguello later this morning
[2024-03-12] MEDS ORDERED: CLEOCIN HCL300 MG PO (09:07)
--- NOTE | 2024-03-12 09:07 | NUR ---
JAYY attended clinical rounding with pt and discussed her discharge with Dr. Bertin Henson. Pt is chronically non-compliant with her medications, not following up with her welt cutter, and is not established with a PCP. Dr. Henson spoke with pt and how her insurance will cover medications, or be on the $4 list. Pt expressed many excuses and is not taking accountability for her needs. Pt will be newly established by [facility], but pt reports to that she does not "like them," but JAYY notes she reports being "fired" from other providers. Clerk Young is attempting to schedule/establish pt with [facility]. Discharge Plan: home
[2024-03-12] MEDS ORDERED: SODIUM BICARBO650 MG PO (09:08)
[2024-03-12] MEDS ORDERED: NORVASC 10MG10 MG PO (09:09)
[2024-03-12] MEDS ORDERED: LIPITOR20 MG PO (09:09)
[2024-03-12] MEDS ORDERED: LANTUS SOLOS100 U/ML SQ (09:10)
[2024-03-12] MEDS ORDERED: GLUTOSE 1515 GM PO (09:13)
[2024-03-12] MEDS ORDERED: CONTROL SOLUTI1 EAC1 MC (09:13)
[2024-03-12] MEDS ORDERED: GLUCAGON EMERGEN1 M1 SQ (09:13)
[2024-03-12] MEDS ORDERED: BD ALCOHOL1 SWA MC (09:13)
[2024-03-12] MEDS ORDERED: GLUCOSE TEST ST1 DEV MC (09:13)
[2024-03-12] MEDS ORDERED: FREESTYLE PREC1 EAC5 MC (09:13)
[2024-03-12] MEDS ORDERED: LANCETS MC (09:13)
[2024-03-12] MEDS ORDERED: INSULIN PEN NE1 EAC1 MC (09:13)
[2024-03-12] MEDS ORDERED: PROBIOTIC ACID1 EAC3 PO (09:16)
--- NOTE | 2024-03-12 11:41 | NUR ---
JAYY was notified by JAYY Mcmahon that patient needs transportation home. JAYY scheduled Medicaid transportation to transport patient home from the hospital. Patient is scheduled to be picked up at 3:25 pm. Reference number is [id number]. JAYY notified JAYY Mcmahon, varnishing unit tool setter, patient's nurse and charge nurse.
--- NOTE | 2024-03-12 13:00 | NUR ---
Patient's primary nurse reported to this nurse (charge nurse) that patient was refusing to sign discharge paperwork. This nurse spoke with patient- patient reports she will not do any follow up appointments with [facility]. Request follow up with BETO Bonilla. Also reports that she doesn't want to do any follow up care/appointments with Dr. Mosher. Requests follow up with Dr. Perez. Called [facility] Bonilla office at and they report that the patient has been fired and will not see patient. Information sent to Dr. Perez and his office will contact patient. Pt also c/o that her insurance doesn't cover any of her diabetic medications. Contacted Rachel at [facility] and she reports that the insurance will cover all the medications for no cost except the Trumatrix meter (OOP cost is $16.99), Na Bicarb (OOP cost is $8.61), Glutose-15 (OOP cost is $8.49), alcohol pads (OOP cost is $8.00) and probiotic which is OTC (OOP will vary). Patient reports allergy to alcohol and will fill that prescription. Total cost of meter, glutose and Na Bicarb equals $34.09. [facility] will deliver medications free of charge, except the cost of the co-pay. Pt also reports that she doesn't have transportation. Explained to patient she can set up transportation through medicaid. Pt then reports she is still having chest pain. Spoke with Dr. Henson and reported to patient reports she is medically stable for discharge. All this information has been communicated with patient. Intially patient became argumentative- this nurse instructed patient she will discharge today regardless of signing discharge papers and transportation will be here at 1525 for diamond picker. Pt requested assistance to BR which was SBA. Pt stated she will need to have someone stay will her because she is concerned about her safety while ambulating. This nurse noted no decifits or issues with ambulation.
--- NOTE | 2024-03-12 14:31 | NUR ---
Discharge instructions reveiwed with the patient. Patient interupted this nurse several times during education. Pt requested that this nurse change script for glucometer so insurance will cover. Explained that the strips are covered by insurance and the glucometer has to be compatiable with strips so this won't be done. Also, patient stated she will not cigar packer and picker bicarb due to cost and will have mother cigar packer and picker at later time- but will eventually cigar packer and picker. INT d/c with cath tip intact. Pt also c/o that she did not get side salad on meal tray- called dietary to request side salad be sent to floor. Transportation due to cigar packer and picker patient at 1525.
--- NOTE | 2024-03-12 15:51 | NUR ---
fruit ii farmworker called [employer] transport who reports they are in route and will arrive at 4:08pm. They have the nurse's station number to call upon arrival. SW informed Vice President Of Customer Service Hannah of this.
== END 2024-03-12 18:30 | disposition home or self-care (01) | DRG 683 ==
LOC: COL.ER 17:43 → MEDICAL 21:01
PROVIDERS: Physician Assistant; ADMIT Internal Medicine
DX: N17.9 Acute kidney failure, unspecified (principal); E87.20 Acidosis, unspecified; E11.65 Type 2 diabetes mellitus with hyperglycemia; I12.9 Hypertensive chronic kidney disease with stage 1 through stage 4 chronic kidney disease, or unspecified chronic kidney disease; E11.22 Type 2 diabetes mellitus with diabetic chronic kidney disease; N18.9 Chronic kidney disease, unspecified; K21.9 Gastro-esophageal reflux disease without esophagitis; E87.5 Hyperkalemia; F41.9 Anxiety disorder, unspecified; K04.7 Periapical abscess without sinus; R59.1 Generalized enlarged lymph nodes; F32.A Depression, unspecified; G43.909 Migraine, unspecified, not intractable, without status migrainosus; M19.90 Unspecified osteoarthritis, unspecified site; Z87.891 Personal history of nicotine dependence; Z88.3 Allergy status to other anti-infective agents; Z88.7 Allergy status to serum and vaccine; Z91.048 Other nonmedicinal substance allergy status; Z88.6 Allergy status to analgesic agent; Z88.8 Allergy status to other drugs, medicaments and biological substances; Z91.148 Patient's other noncompliance with medication regimen for other reason; Z91.199 Patient's noncompliance with other medical treatment and regimen due to unspecified reason
CPT/HCPCS: A9270; J0360; J0737; J1644; J1815; J7030; J7120; Q3014